=== PATIENT | male | born 1955 | race Caucasian/White ===

== ENCOUNTER 2019-12-24 13:24 | Inpatient (IN) | payer OTHER ==
[~2019-12-24] VITALS: Ht 193 cm; Wt 133.4 kg
[~2019-12-24 13:24] MED LIST: ACCUPRIL40 MG PO; AMLODIPINE BESY10 MG PO; ATENOLOL50 MG PO; FUROSEMIDE40 MG PO; GABAPENTIN300 MG PO; TAMSULOSIN HCL0.4 MG PO; WARFARIN SODIUM10 MG PO
--- NOTE | 2019-12-24 13:32 | Emergency Department Note ---
History of Present Illnes History of Present Illness History of Present Illness This is a 64 year old male hx of DJD, had a steroid injection last week to the right hip, fell and hurt his right hip. His orthopedic doctor is Dr Roel Guevara in [facility]. Arrival Mode: Car Onset (how long ago): hour(s) Radiation: Reports non-radiation Severity: severe Onset quality: sudden Duration (how long): hour(s) Timing of current episode: constant Relieving factors: immobilization Exacerbating factors: movement Associated symptoms: Reports denies other symptoms Treatments prior to arrival: none Past Medical/Family History Physician Review I have reviewed the patient's past medical and family history. Any updates have been documented here. Past Medical History Past Medical History: Osteoarthritis Other Medical History: FLUID RETENTION NEUROPATHY BPH ARTIFCIAL HEART FAILURE Other Surgery: ARTIFICAL HEART VALVE REPLACEMENT LEFT KNEE Social History Smoking Cessation: Unknown if ever smoked Counseling Performed: No Any Illegal Drug Use: No TB Exposure/Symptoms: No Physically hurt or threatened: No Family History Family history of heart diseas: No Other Last Tetanus: UTD Any Pre-Existing Lines (PICC,: No Review of Systems Review of Systems Constitutional: Reports as per HPI EENTM: Reports no symptoms Cardiovascular: Reports no symptoms Respiratory: Reports no symptoms Gastrointestinal: Reports no symptoms Genitourinary: Reports no symptoms Musculoskeletal: Reports joint pain Integumentary: Reports no symptoms Neurological: Reports no symptoms Psychological: Reports no symptoms Endocrine: Reports no symptoms Hematological/Lymphatic: Reports no symptoms Physical Exam Related Data Allergies: Coded Allergies: No Known Allergies (Unverified , 01/05/15) Vital signs reviewed: Yes Physical Exam CONSTITUTIONAL Constitutional: Present well-developed, Present well-nourished HENT HENT: Present normocephalic, Present atraumatic, Present oropharynx clear/moist, Present nose normal HENT L/R: Present left ext ear normal, Present right ext ear normal EYES Eyes: Reports PERRL, Reports conjunctivae normal NECK Neck: Present ROM normal PULMONARY Pulmonary: Present effort normal, Present breath sounds normal CARDIOVASCULAR Cardiovascular: Present regular rhythm, Present heart sounds normal, Present c apillary refill normal, Present normal rate GASTROINTESTINAL Abdominal: Present soft, Present nontender, Present bowel sounds normal GENITOURINARY Genitourinary: Present exam deferred SKIN Skin: Present warm, Present dry MUSCULOSKELETAL Musculoskeletal: Present deformity, Present tenderness, Present other (right hip tender, no opened wound, both knee looks deformed c/w DJD) NEUROLOGICAL Neurological: Present alert, Present oriented x 3, Present no gross motor or sensory deficits PSYCHOLOGICAL Psychological: Present mood/affect normal, Present judgement normal Results Laboratory Lab results reviewed: Yes Imaging Imaging results reviewed: Yes Imaging Comments right hip fracture Diagnostics Tests Diagnostic test(s) reviewed: Yes Procedures 12 Lead ECG Interpretation ECG Interpretation : ECG: ECG 1 Poultry Slaughterer: Interpreted by ED physician Date: Dec 24, 2019 Time: 17:22 Prior ECG tracings: reviewed Rhythm: atrial fibrillation Rate: normal QRS axis: normal ST segments normal: Yes Clinical Impression: abnormal ECG Assessment & Plan Medical Decision Making MDM trauma, on blood thinner Reassessment Reassessment time: 15:21 Reassessment discussed with pt Assessment & Plan Final Impression: (1) Intertrochanteric fracture of right femur (2) Acute pain due to trauma Depart Disposition: ADMITTED Home Meds Active Scripts Amlodipine Besylate (AMLODIPINE BESYLATE) 10 Mg Tablet, 10 MG PO DAILY, #30 TAB Prov:ERIKA LIMON PLANT PRODUCTION MANAGER 01/08/15 Reported Medications Gabapentin (GABAPENTIN) 300 Mg Capsule, 300 MG PO TID, #60 CAP 01/05/15 Tamsulosin Hcl (TAMSULOSIN HCL) 0.4 Mg Cap.er.24h, 0.4 MG PO DAILY 01/05/15 Warfarin Sodium (WARFARIN SODIUM) 10 Mg Tablet, 12.5 MG PO 3 X WEEK 01/05/15 Warfarin Sodium (WARFARIN SODIUM) 10 Mg Tablet, 10 MG PO 4 X WEEK 01/05/15 Furosemide (FUROSEMIDE) 40 Mg Tablet, 40 MG PO Daily, #30 TAB 01/05/15 Quinapril Hcl (ACCUPRIL) 40 Mg Tablet, 40 MG PO BID 01/05/15 Atenolol (ATENOLOL) 50 Mg Tablet, 50 MG PO BID 01/05/15 Medications in the ED IV Zofran, IV opiods. Physician Attestation Provider Attestation discussed with his ortho Dr Den Guevara [phone], he is out of town and he asks patient to be cared for at [facility]. Discussed with Dr Katz, he rec preop for the next day. I have talked to attending as well. SHARI SONG MD Dec 24, 2019 13:32
[2019-12-24] MEDS ORDERED: HYDROCODONE/APAP 5MG-325MG TAB PO ONE (14:00)
[2019-12-24] MEDS ORDERED: ONDANSETRON HCL 4 MG ORAL DISINTEGRATING TAB PO ONE (14:00)
[2019-12-24] MEDS ORDERED: KETOROLAC TROMETHAMINE 30 MG/ML VIAL IM ONE (14:00)
--- OUTSIDE RECORDS SUMMARY | 2019-12-24 14:32 | XMS REPORT | Summary of Care ---
Author Author CASSANDRA Lew Organization Unknown Address Unknown Phone Unavailable Care Team Providers Care Provider Relations Coordinator Name Role Phone JOSIE GOODMAN M.D. Unavailable Unavailable JOSIE GOODMAN MD Unavailable Unavailable Functional Status Name Dates Details Functional status health issues are not documented Status: Name Dates Details Cognitive status health issues are not d ocumented Status: Problems Name Dates Details Right hip pain (719.45, M25.551) Status: Active Osteoarthritis of right hip (715.95, M16 .11) Status: Active Encounter for laboratory testing for COV ID-19 virus (V73.89, Z11.59) Status: Active Medications Name Dates Details Medications not documented Allergies and Adverse Reactions Name Dates Details Allergy history not documented Status: Procedures Procedure Dates Details . [facility] - COVID-19/SARS-Cov-2 Date: 06-Dec-2019 Immunization Name Dates Details Immunizations not documented Social History Name Dates Details Tobacco smoking consumption unknown (finding) Vital Signs Date Test Result Details No Known Vitals to report Results Date Description Value Details Results not documented Plan of Care Name Dates Details Planned Observations Planned Goals not documented Planned Encounters Appointment; JOSIE GOODMAN M.D. On: 14-Dec-2019 8:30 Appointment; JOSIE GOODMAN M.D. On: 29-Dec-2019 9:15 Interventions Provided Labs/Procedures/Imaging* . [facility] - COVID-19/SARS-Cov-2; To Be Done: 06 Dec 2019 * [A] Xray HIP UNILAT w/PELVIS 2-3 VIEWS; Done: 06 Dec 2019 Instructions Name Dates Details Instructions not documented Encounters Appointment; JOSIE GOODMAN M.D. Encounter Diagnosis: Problem not documented On: 06-Dec-2019 9:45
--- OUTSIDE RECORDS SUMMARY | 2019-12-24 14:32 | XMS REPORT | Summary of Care ---
Author Author CASSANDRA GOODMAN M.D. Unknown Address Unknown Phone Unavailable Care Team Providers Care Teacher Education Director Name Role Phone JOSIE GOODMAN M.D. Unavailable Unavailable JOSIE GOODMAN MD Unavailable Unavailable Functional Status Name Dates Details Functional status health issues are not documented Status: Name Dates Details Cognitive status health issues are not d ocumented Status: Problems Name Dates Details Active medical history not documented Status: Medications Name Dates Details Medications not documented Allergies and Adverse Reactions Name Dates Details Allergy history not documented Status: Procedures Procedure Dates Details Procedures not documented Immunization Name Dates Details Immunizations not documented Social History Name Dates Details Tobacco smoking consumption unknown (finding) Vital Signs Date Test Result Details No Known Vitals to report Results Date Description Value Details Results not documented Plan of Care Name Dates Details Planned Observations Planned Goals not documented Interventions Provided Labs/Procedures/Imaging* [A] Xray HIP UNILAT w/PELVIS 2-3 VIEWS; Done: 06 Dec 2019 Instructions Name Dates Details Instructions not documented Encounters Appointment; JOSIE GOODMAN M.D. Encounter Diagnosis: Problem not documented On: 06-Dec-2019 9:45
--- OUTSIDE RECORDS SUMMARY | 2019-12-24 14:32 | XMS REPORT | Summary of Care ---
Author Author CASSANDRA Lew Organization Unknown Address Unknown Phone Unavailable Care Team Providers Care Cigar Packer And Grader Name Role Phone Saige Lew Unavailable Unavailable JOSIE GOODMAN MD Unavailable Unavailable [...] Planned Encounters Appointment; JOSIE GOODMAN M.D. On: 21-Dec-2019 7:00 Instructions Name Dates Details Instructions not documented Encounters Appointment; JOSIE GOODMAN M.D. Encounter Diagnosis: Problem not documented On: 06-Dec-2019 9:45
--- OUTSIDE RECORDS SUMMARY | 2019-12-24 14:32 | XMS REPORT | Continuity of Care Document ---
Author Author [facility] t Organization [facility] Address [address] [place] [address] Phone Unavailable Care Team Providers Care Program Clerk Name Role Phone Joaquin MENJIVAR, Teresa Garza PCP Unavailable JOSIE GOODMAN M.D. Attphys Unavailable JOAQUIN, TERESA GARZA Attphys Unavailable AJNEENA Varela Attphys Unavailable JOAQUIN, TERESA GARZA Admphys Unavailable Problems Condition Name Condition Details Condition Category Status Onset Date Resolution Date Last Treatment Date Treating Clinician Comments Source Atrial fibrillation Atrial fibrillation Disease [facility] 2018-03-25 [facility] specific antigen [PSA] Elevated pros davis specific antigen [PSA] Disease Active 2017-06-09 00:00:00 MD Nichole toussaint Encounter for screening for malignant neoplasm of pros davis Encounter for screening for malignant neoplasm of prostate Disease Active 201 11-20-25 00:00:00 MD Mondragon Right hip pain Right hip pain Problem Active [facility] Osteoarthritis of right hip Osteoarthritis of right hip Problem Active [facility] Encounter for laboratory testing for COVID-19 virus En counter for laboratory testing for COVID-19 virus Problem Active [facility] Allergies, Adverse Reactions, Alerts Allergy Name Allergy Type Status Severity Reaction(s) Onset Date Inacti ve Date Treating Clinician Comments Source Amiodarone Analogues Propensity to adverse reactions Active 2018-03-25 00:00:00 Developed thyroid issues after p rolonged use [facility] Family History Family Member Diagnosis Comments Start Date Stop Date Source Natural brother -Melanoma MD Early on Natural father Diabetes MD Idania sood Natural mother -Breast cancer Natural mother Hypertension Romario son Paternal aunt -Thoracic or Lung MD A nderson Paternal uncle -Gastrointestinal (Esophagus , Liver, Bile Duct, Stomach, Pancreas, Colon, Rectum, Anus MD Mondragon Social History Social Habit Start Date Stop Date Quantity Comments Source Sex Assigned At MD Mondragon Alcohol Comment 2018-03-25 00:00:00 2018-03-25 00:00:[address] [facility] Cigarettes smoked current (pack per day) - Reported 00:00:00 2016-09-02 00:00:00 MD Mondragon Cigarette pack-years 2016-09-02 00:00:00 2016-09-02 00:00:00 MD Mondragon Tobacco use and exposure 2016-09-02 00:00:00 2016-09-02 00:00:00 Abraham ray used MD Mondragon Alcohol intake 2016-09-02 00:00:00 2016-09-02 00:00:00 Current non-drinker of alcohol (finding) MD Mondragon Tobacco Comment 2016-09-02 00:00:00 2016-09-02 00:00:00 quit for three years during the 20 years I smoked MD Mondragon History of tobacco use 1996-05-05 00:00:00 1995-11-15 00:00:00 Curren t smoker MD Mondragon Smoking Status Start Date Stop Date Source Former smoker 2016-09-02 00:00:00 2016-09-02 00:00:00 MD Doss son Medications Ordered Medication Name Filled Medication Name Start Date Stop Da te Current Medication? Ordering Clinician Indication Dosage Frequency Signature (SIG) Comments Components Source furosemide (LASIX) 40 MG tablet 2018-03-25 08:45:46 Yes 20mg QD Take 20 mg by mouth daily . [facility] warfarin (COUMADIN) 10 MG tablet 2018-03-25 08:41:21 Yes 10mg QD Take 10 mg by mouth daily Pt takes 10 mg warfarin daily, 12.5 mg on Fridays [address]. [facility] guanFACINE (TENEX) 2 MG tablet 2018-03-24 13:02:03 Yes 2mg QD Take 2 mg by mouth nightly. [facility] quinapril (ACCUPRIL) 40 MG tablet 2018-03-24 13:02:03 Yes 40mg Q.5D Take 40 mg by mouth 2 (two) times daily. [facility] gabapentin (NEURONTIN) 300 MG capsule 2018-03-24 13:02:03 Yes 300mg Q.5D Take 300 mg by mouth 2 (two) times daily. [facility] glucosam/chond-msm1/C/vickie/bor ([id number] COMPLE X ORAL) 2018-03-24 13:02:03 Yes 2{tbl} QD Take 2 tablets by mouth carolin y. [facility] tamsulosin (FLOMAX) 0.4 mg Cap 24 hr capsule 2018-03-24 13:02:03 Yes .4mg QD Take 0.4 mg by mouth daily. [facility] amLODIPine (NORVASC) 10 MG tablet 2018-03-24 13:02:02 Yes 10mg QD Take 10 mg by mouth daily. [facility] atenolol (TENORMIN) 50 MG tablet 2018-03-24 13:02:02 Yes 50mg Q.5D Take 50 mg by mouth 2 (two) times daily. [facility] guanFACINE (TENEX) 2 mg tablet 2016-11-23 00:00:00 Yes 2mg Take 2 mg by mouth at bedtime. MD Mondragon warfarin (COUMADIN) 5 mg tablet 2016-08-28 00:00:00 Yes 5mg Take 5 mg by mouth daily. MD Mondragon gabapentin (NEURONTIN) 300 mg capsule 2016-08-27 00:00:00 Y es 300mg Take 300 mg by mouth daily. MD Mondragon guanFACINE (TENEX) 2 mg tablet 2016-08-24 00:00:00 Yes 2mg Take 2 mg by mouth daily. MD Mondragon tamsulosin (FLOMAX) 0.4 mg 24 hr capsule 2016-08-07 00:00:00 Yes .4mg Take 0.4 mg by mouth daily. MD Mondragon quinapril (ACCUPRIL) 40 mg tablet 2016-07-27 00:00:00 Yes 40mg Take 40 mg by mouth twice daily. MD Mondragon amLODIPine (NORVASC) 10 mg tablet 2016-06-01 00:00:00 Yes 10mg Take 10 mg by mouth daily. MD Mondragon furosemide (LASIX) 40 mg tablet 2016-04-20 00:00:00 Yes 40mg Take 40 mg by mouth daily. MD Mondragon atenolol (TENORMIN) 50 mg tablet 2015-10-02 00:00:00 Yes 50mg Take 50 mg by mouth daily. MD Mondragon Procedures Procedure Date / Time Performed Performing Clinician Sourc e [UTP] Ortho - Surgery Scheduling 2019-12-06 00:00:00 [facility] . [facility] - COVID-19/SARS-Cov-2 2019-12-06 00:00:00 [facility] Plan of Care Planned Activity Planned Date Details Comments Source Future Scheduled Test 2021-03-14 00:00:00 Lipid panel (proce dure) [code = 99281041] [facility] Future Scheduled Test 2020-01-16 00:00:00 INFLUENZA VACCINE (#1) [code = INFLUENZA VACCINE (#1)] [facility] r Diagnostic Test Pending 2019-12-06 00:00:00 [UTP] Ortho - Issa rgery Scheduling [code = [UTP] Ortho - Surgery Scheduling] [facility] Diagnostic Test Pending 2019-12-06 00:00:00 [UTP] Ortho - Issa rgery Scheduling [code = [UTP] Ortho - Surgery Scheduling] [facility] Future Scheduled Test 2019 00:00:00 PNEUMOCOCCAL 65+ L OW/MEDIUM RISK (1 of 2 - PCV13) [code = PNEUMOCOCCAL 65+ LOW/MEDIUM RISK (1 of 2 - PCV13)] [facility] Future Scheduled Test 1955 00:00:00 Screening for eloise gnant neoplasm of colon (procedure) [code = 174503058] [facility] Future Appointment 2019-12-29 09:15:00 Kimberly GALINDO [facility] Encounters Start Date/Time End Date/Time Encounter Type Admission Type Attendi [facility] Care Department Encounter ID Source 2019-12-06 09:45:00 2019-12-06 09:45:00 Appointment; ROBBIE GOODMAN M.D. CARLYLE, TRENT[place], M.D. [id number] Results Test Description Test Time Test Comments Results Result Comments Source PROTHROMBIN TIME/INR 2018-03-25 09:12:00 Test Item PROTIME (BEAKER) (test code = 759) 31.9 seconds 11.7-14.7 H INR (BEAKER) (test code = 370) 3.1 <=5.9 RECOMMENDED COUMADIN/WARFARIN INR THERAPY RANGESSTANDARD DOSE: 2.0 - 3.0 Inclu kristal: PROPHYLAXIS for venous thrombosis, systemic embolization; TREATMENT for svetlana ous thrombosis and/or pulmonary embolus.HIGH RISK: Target INR is 2.5-3.5 for pat ients with mechanical heart valves.U/S, TESTICULAR, WITH [id number] 22:09:00Reason for exam:->left testicular swellingc/o inability to urinate since yesterday. Pt reports 2 year hx of dysuria. Pt reporrs on tamusolin. Reason for exam:->DYSURIAReason for exam:->L swollen testicle x 2-3 daysFINAL REPORT Testicular ultrasound date 05/12/2017 CLINICAL INDICATION: Left scrotal pain Comment: Real-time mason-scale, color and spectral Doppler ultrasound examination of the testis were obtained. Doppler examination was performed to evaluate testicular blood flow. The right testicle measures 5.0 x 2.9 x 3.3 cm. The left testicle measures 3.5 x 3.7 x 2.4 cm. Both testis are homogeneous without focal mass. Doppler ultrasound demonstrates patent arterial and venous flow in both testis. Right epididymis measures 1.5 x 0.8 x 0.9 cm. Left epididymis measures 2.0 x 0.8 x 0.8 cm. There is a simple left epididymal cyst measuring 5 mm. There are simple bilateral hydroceles, left greater than right. Bilateral varicoceles are suspected. Impression: Normal ultrasound appe arance of the testicles. Simple bilateral hydroceles. Suspected bilateral varico doris. Signed: Maxwell De La Torre MDReport Verified Date/Time: 05/12/2017 22:09:12 R eabehzad Location: [address] Reading Room ALYSIS W/ MICROSCOPIC 2017-05-12 21:28:00* Test Item Value Reference Range Interpretation Comments COLOR (BEAKER) (test code = 470) Yellow CLARITY (BEAKER) (test code = 469) Clear SPECIFIC GRAVITY UA (BEAKER) (test code = 468) 1.020 1.001-1 .035 PH UA (BEAKER) (test code = 467) 7.0 5.0-8.0 PROTEIN UA (BEAKER) (test code = 464) 30 mg/dL Negative A GLUCOSE UA (BEAKER) (test code = 365) Negative Negative KETONES UA (BEAKER) (test code = 371) 40 mg/dL Negative A BILIRUBIN UA (BEAKER) (test code = 462) Positive Negative A BLOOD UA (BEAKER) (test code = 461) Moderate Negative A NITRITE UA (BEAKER) (test code = 465) Negative Negative LEUKOCYTE ESTERASE UA (BEAKER) (test code = 466) Small Negat zonia A UROBILINOGEN UA (BEAKER) (test code = 463) 2.0 mg/dL 0.2-1.0 H BACTERIA (BEAKER) (test code = 517) Many MUCUS (BEAKER) (test code = 1574) Many RBC UA-MANUAL (BEAKER) (test code = 1659) 50-100 /HPF WBC UA-MANUAL (BEAKER) (test code = 1661) 50-100 /HPF SOURCE(BEAKER) (test code = 9852)
--- OUTSIDE RECORDS SUMMARY | 2019-12-24 14:32 | XMS REPORT | Clinical Summary ---
Author Author ANGEL [employer] [facility] Address Unknown Phone Unavailable Care Team Providers Care Bottom Cementer Name Role Phone Greg Nuñez MD PCP Unavailable Allergies Comments Active Allergy Reactions Severity Noted Date Developed thyroid issues after prolonged use Amiodarone Analogues 03/25/2018 Medications End Date Status Medication Sig Dispensed Refills Start Date Active amLODIPine (NORVASC) 10 Take 10 mg by 0 MG tablet mouth daily. Active atenolol (TENORMIN) 50 MG Take 50 mg by 0 tablet mouth 2 (two) times daily. Active furosemide (LASIX) 40 MG Take 20 mg by 0 tablet mouth daily . Active guanFACINE (TENEX) 2 MG Take 2 mg by 0 tablet mouth nightly. Active quinapril (ACCUPRIL) 40 Take 40 mg by 0 MG tablet mouth 2 (two) times daily. Active warfarin (COUMADIN) 10 MG Take 10 mg by 0 tablet mouth daily Pt takes 10 mg warfarin daily, 12.5 mg on Fridays only. Active gabapentin (NEURONTIN) Take 300 mg 0 300 MG capsule by mouth 2 (two) times daily. Active glucosam/chond-msm1/C/man Take 2 0 g/bor tablets by ([id number] mouth daily. COMPLEX ORAL) Active tamsulosin (FLOMAX) 0.4 Take 0.4 mg 0 mg Cap 24 hr capsule by mouth daily. Active Problems Problem Noted Date Atrial fibrillation 03/25/2018 Social History Date Tobacco Use Types Packs/Day Years Used Former Smoker Smokeless Tobacco: Never Used Comments: Quit 20 years ago Alcohol Use Drinks/Week oz/Week Comments Yes 7 Cans of 4.2 Seldom beer Sex Assigned at Date Recorded Not on file Industry Job Start Date Occupation Not on file Not on file Not on file Travel End Travel History Travel Start No recent travel history available. Last Filed Vital Signs Not on file Plan of Treatment Health Maintenance Due Date Last Done Comments COLON CANCER SCREENING 1954 COLONOSCOPY PNEUMOCOCCAL 65+ 2019 03/06/2013, 005 LOW/MEDIUM RISK (1 of 2 - PCV13) INFLUENZA VACCINE (#1) 2020 03/16/2017, 05/2014, 03/06/2013, Additional history exists LIPID PANEL 03/14/2021 03/14/2018 Results Not on fileafter 12/23/2018 Insurance Payer Benefit Subscriber ID Type Phone Address Plan / Group [facility] [place] HMO xxxxxxxxx HMO/PO S CARE POS SELECT CHOICE [phone] Advance Directives For more information, please contact: [facility] [address] [place] [address] Date Inactivated Comments Code Status Date Activated Full Code 03/25/2018 11:06 AM This code status was determined by: Patient
--- OUTSIDE RECORDS SUMMARY | 2019-12-24 14:32 | XMS REPORT | Summary of Care ---
Author Author CASSANDRA GOODMAN M.D. Unknown Address Unknown Phone Unavailable Care Team Providers Care Pharmacy Grad Intern Name Role Phone JOSIE GOODMAN M.D. Unavailable [...] not documented Status: Procedures Procedure Dates Details [UTP] Ortho - Surgery Scheduling Date: 06-Dec-2019 . [facility] - COVID-19/SARS-Cov-2 Date: 06-Dec-2019 Immunization Name Dates Details Immunizations not documented Social History Name Dates Details Tobacco smoking consumption unknown (finding) Vital Signs Date Test Result Details No Known Vitals to report Results Date Description Value Details Results not documented Plan of Care Name Dates Details Planned Observations [UTP] Ortho - Surgery Scheduling On: 06-Dec-2019 Intent Planned Goals not documented Interventions Provided Labs/Procedures/Imaging* . [facility] - COVID-19/SARS-Cov-2; To Be Done: 06 Dec 2019 * [A] Xray HIP UNILAT w/PELVIS 2-3 VIEWS; Done: 06 Dec 2019 Plan* Patient Education/Instructions: * Patient education and reassurance was provided for better understanding of the diagnosis and treatment plan. An opportunity to ask questions was provided. * Weightbearing status: full weight bearing as tolerated * Activity Status: * Instructions were given to avoid running and jumping. * Instructions were given to avoid squatting and kneeling. * Instructions were given to avoid ladders and climbing. * Significant time was spent educating and counseling the patient Diagnosis, treatment options, and prognosis were discussed. Various non-surgical, surgical and alternative treatments were discussed thoroughly. The natural history and prognosis of the diagnosis was reviewed in detail. Understanding was acknowledged. Activity modification was recommended to prevent recurrence or aggravation of symptoms. Methods to accomplish this were discussed in detail. Understanding was acknowledged. * Orders: * Medications: * Medications (prescribed or recommended at this visit): Medication was prescribed or recommended. Dosage, administration, and common potential side effects were reviewed. Please confirm and review medication information and directions with the pharmacist. * - Use advil or aleve as needed for pain relief, discomfort, or fever. Do not take more than recommended dosage in a 24 hour period as this can cause severe side effects including kidney damage. * Surgery: right intra articular injection. Surgery and various surgical options were discussed in detail. The risks and benefits of surgical, nonsurgical, and no treatment were reviewed. Understanding of this was verbally acknowledged. * Follow Up: * Return to the clinic before surgery or as needed. * Patient seen and examined by Physician. Instructions Name Dates Details Instructions not documented Encounters Appointment; JOSIE GOODMAN M.D. Encounter Diagnosis: Problem not documented On: 06-Dec-2019 9:45
--- OUTSIDE RECORDS SUMMARY | 2019-12-24 14:32 | XMS REPORT | Summary of Care ---
Author Author CASSANDRA GOODMAN M.D. Organization Unknown Address Unknown Phone Unavailable Care Team Providers Care Fabrics And Material Cutter Name Role Phone JOSIE GOODMAN M.D. Unavailable [...] Appointment; JOSIE GOODMAN M.D. On: 21-Dec-2019 7:00 Interventions Provided Labs/Procedures/Imaging* . [facility] - COVID-19/SARS-Cov-2; To Be Done: 06 Dec 2019 * [A] Xray HIP UNILAT w/PELVIS 2-3 VIEWS; Done: 06 Dec 2019 Instructions Name Dates Details Instructions not documented Encounters Appointment; JOSIE GOODMAN M.D. Encounter Diagnosis: Problem not documented On: 06-Dec-2019 9:45
--- OUTSIDE RECORDS SUMMARY | 2019-12-24 14:32 | XMS REPORT | Summary of Care ---
Author Author CASSANDRA GOODMAN M.D. Unknown Address Unknown Phone Unavailable Care Team Providers Care Pharmacy Delivery Driver Name Role Phone JOSIE GOODMAN M.D. Unavailable [...]
--- NOTE | 2019-12-24 14:47 | Diagnostic Imaging Report ---
CT Bony Pelvis Without Contrast, With Multiplanar Reconstruction. CPT CODE: 55979,81300. INDICATIONS: Chronic hip pain increasing after fall TECHNIQUE: Contiguous 5 mm thickness axial images were obtained in helical fashion through the bony pelvis. From these, coronal and sagittal reconstructions were generated. RADIATION DOSE: Total DLP: 402.6 mGy*cm Estimated effective dose: (DLP x 0.015 x size factor) mSv CTDIvol has been reviewed. It is below the limits set by the Radiation Protocol Committee (RPC). Dose reduction techniques used: Automated exposure control, adjustment of the mAs and/or kVp according to patient size, standardized low-dose protocol, and/or iterative reconstruction technique. COMPARISON: Report of CT abdomen/pelvis performed 01/06/2015. Findings: Bowel: Visualized portions are normal in diameter with normal wall thickness. The appendix is normal. Bladder: Circumferential mural thickening. The prostate gland is enlarged. Vasculature: Aortic structures are diffusely calcified. Bones: Degenerative changes of the lower lumbar spine without compression fracture or listhesis. Degenerative changes of the sacroiliac joints, right greater than left. Severe degenerative changes of the right hip. Nondisplaced intertrochanteric fracture of the right femur. Mild degenerative changes of the left hip. Soft tissues: No intramuscular hematoma. Small amount of simple fluid in the right inguinal canal. IMPRESSION: Nondisplaced intertrochanteric fracture of the right femur. Severe degenerative changes of the right hip. No femoral head dislocation. Other degenerative changes as described above. Fluid containing right inguinal hernia. Thank you for this referral. Signed by: Dr. Hu Kennedy MD on 12/24/2019 2:44 PM
--- OUTSIDE RECORDS SUMMARY | 2019-12-24 15:29 | XMS REPORT | Clinical Summary ---
Author Author [employer] [facility] Address Unknown Phone Unavailable Care Team Providers Care Maintenance Engineer Name Role Phone Greg Nuñez MD PCP [...] glucosam/chond-msm1/C/man Take 2 0 g/bor tablets by (ZKTIXIGCOLD-YROBX-YQB mouth daily. COMPLEX ORAL) Active tamsulosin (FLOMAX) [...] ID Type Phone Address Plan / Group [facility] HMO xxxxxxxxx HMO/PO S CARE POS SELECT CHOICE [phone] Advance Directives For more information, please contact: [facility] [address] [place] [address] Date Inactivated Comments Code Status Date Activated Full Code 03/25/2018 11:06 AM This code status was determined by: Patient
--- OUTSIDE RECORDS SUMMARY | 2019-12-24 15:29 | XMS REPORT | Continuity of Care Document ---
Author Author [facility] t Organization [facility] Address [address] [place] [address] Phone Unavailable Care Team Providers Care Memory Care Program Resident Name Role Phone Joaquin MENJIVAR, Teresa Garza PCP Unavailable DUNCAN, T MCCARTHY Attphys Unavailable JOSIE GOODMAN M.D. Attphys Unavailable TERESA GALLAGHER Attphys Unavailable AJ, ADEDOYIN Attphys Unavailable JOAQUIN, TERESA GARZA Admphys Unavailable Problems Condition Name Condition Details Condition Category Status Onset Date Resolution Date Last Treatment Date Treating Clinician Comments Source Atrial fibrillation Atrial fibrillation Disease Active 2018-03-25 00:00 [facility] prostate specific antigen [PSA] Elevated [...] Developed thyroid issues after p rolonged use [facility] Family History Family Member Diagnosis Comments Start Date Stop Date Source Natural brother -Melanoma Sharath on Natural father Diabetes MD Idania sood Natural mother -Breast cancer Natural mother Hypertension Romario son Paternal aunt -Thoracic or Lung MD Nichole toussaint Paternal uncle -Gastrointestinal (Esophagus , Liver, Bile Duct, Stomach, Pancreas, Colon, Rectum, Anus MD Mondragon Social History Social Habit Start Date Stop Date Quantity Comments Source Sex Assigned At MD Mondragon Alcohol Comment 2018-03-25 00:00:00 2018-03-25 00:00:00 Seldom [facility] Cigarettes smoked current (pack per day) - Reported 00:00:00 2016-09-02 00:00:00 MD Mondragon Cigarette pack-years 2016-09-02 00:00:00 2016-09-02 00:00:00 MD Mondragon Tobacco use and exposure 2016-09-02 00:00:00 2016-09-02 00:00:00 Slime cory used MD Mondragon Alcohol intake 2016-09-02 00:00:00 [...] Take 20 mg by mouth daily . [facility] warfarin (COUMADIN) 10 MG tablet 2018-03-25 08:41:21 Yes 10mg QD Take 10 mg by mouth daily Pt takes 10 mg warfarin daily, 12.5 mg on Fridays only. [facility] guanFACINE (TENEX) 2 MG tablet 2018-03-24 13:02:03 Yes 2mg QD Take 2 mg by mouth nightly. [facility] quinapril (ACCUPRIL) 40 MG tablet 2018-03-24 13:02:03 Yes 40mg Q.5D Take 40 mg by mouth 2 (two) times daily. [facility] gabapentin (NEURONTIN) 300 MG capsule 2018-03-24 13:02:03 Yes 300mg Q.5D Take 300 mg by mouth 2 (two) times daily. [facility] glucosam/chond-msm1/C/vickie/bor (VMCPODJJFWL-NJSEN-ISF COMPLE X ORAL) 2018-03-24 13:02:03 Yes 2{tbl} QD Take 2 tablets by mouth carolin y. [facility] tamsulosin (FLOMAX) 0.4 mg Cap 24 hr capsule 2018-03-24 13:02:03 Yes .4mg QD Take 0.4 mg by mouth daily. [facility] amLODIPine (NORVASC) 10 MG tablet 2018-03-24 13:02:02 Yes 10mg QD Take 10 mg by mouth daily. [facility] atenolol (TENORMIN) 50 MG tablet 2018-03-24 13:02:02 Yes 50mg Q.5D Take 50 mg by mouth 2 (two) times daily. [facility] guanFACINE (TENEX) 2 mg tablet 2016-11-23 00:00:00 [...] Procedure Date / Time Performed Performing Clinician Sour e [UTP] Ortho - Surgery Scheduling 2019-12-06 00:00:00 [facility] . [facility] - COVID-19/SARS-Cov-2 2019-12-06 00:00:00 [facility] Plan of Care Planned Activity Planned Date Details Comments Source Future Scheduled Test 2021-03-14 00:00:00 Lipid panel (proce dure) [code = 38296084] [facility] Test 2020-01-16 00:00:00 INFLUENZA VACCINE (#1) [code = INFLUENZA VACCINE (#1)] [facility] Pending 2019-12-06 00:00:00 [UTP] Ortho - Issa rgery Scheduling [code = [UTP] Ortho - Surgery Scheduling] [facility] Diagnostic Test Pending 2019-12-06 00:00:00 [UTP] Ortho - Issa rgery Scheduling [code = [UTP] Ortho - Surgery Scheduling] [facility] Future Scheduled Test 2019 00:00:00 PNEUMOCOCCAL 65+ L OW/MEDIUM RISK (1 of 2 - PCV13) [code = PNEUMOCOCCAL 65+ LOW/MEDIUM RISK (1 of 2 - PCV13)] [facility] Future Scheduled Test 1955 00:00:00 Screening for eloise gnant neoplasm of colon (procedure) [code = 411375333] [facility] Future Appointment 2019-12-29 09:15:00 Kimberly GALINDO [facility] Encounters Start Date/Time End Date/Time Encounter Type Admission Type Attendi [facility] Facility Care Department Encounter ID Source 2019-12-06 09:45:00 2019-12-06 09:45:00 Appointment; ROBBIE GOODMAN M.D. CARLYLE, TRENTON, M.D. [facility] Orth[facility]ics [facility] [id number] [facility] Results Test Description Test Time Test Comments Results Result Comments Source CT PELVIS WITHOUT-HOPD 2019-12-24 14:40:00 [facility] [address] [address] Patient Name: CASSANDRA CABELLO JR MR #: [id number] : 1955 Age/Sex: 64/M Re #: [id number] Adm Physician: Ordered by: SHARI SONG MD Report #: [id number] Location: [facility] Room/Bed: Procedure: [id number] HOPD/CT PELVIS WITHOUT-HOPD Exam Date: 12/24/19 Exam Time: 1420 REPORT STATUS: Signed CT Bony Pelvis Without Contrast, With Multiplanar Reconstruction. CPT CODE: 84962,91620. INDICATIONS: Chronic hip pain increasing after fall TECHNIQUE: Contiguous 5 mm thickness axial images were obtained in helical fashion through the bony pelvis. From these, coronal and sagittal reconstructions were generated. RADIATION DOSE: Total DLP: 402.6 mGy*cm Estimated effective dose: (DLP x 0.015 x size factor) mSv CTDIvol has been reviewed. It is below the limits set by the Radiation Protocol Committee (RPC). Dose reduction techniques used: Automated exposure control, adjustment of the mAs and/or kVp according to patient size, standardized low-dose protocol, and/or iterative reconstruction technique. COMPARISON: Report of CT abdomen/pelvis performed 01/06/2015. Findings: Bowel: Visualized portions are normal in diameter with normal wall thickness. The appendix is normal. Bladder: Circumferential mural thickening. The prostate gland is enlarged. Vasculature: Aortic structures are diffusely calcified. Bones: Degenerative changes of the lower lumbar spine without compression fracture or listhesis. Degenerative changes of the sacroiliac joints, right greater than left. Severe degenerative changes of the right hip. Nondisplaced intertrochanteric fracture of the right femur. Mild degenerative changes of the left hip. Soft tissues: No intramuscular hematoma. Small amount of simple fluid in the right inguinal canal. IMPRESSION: Nondisplaced intertrochanteric fracture of the right femur. Severe degenerative changes of the right hip. No femoral head dislocation. Other degenerative changes as described above. Fluid containing right inguinal hernia. Thank you for this referral. Signed by: Dr. Buzz Sharma MD on 12/24/2019 2:44 PM Dictated By: BUZZ SHARMA MD 43 Transcribed By: ANJALI on 12/24/191443 COPY TO: SHARI SONG MD PROTHROMBIN TIME/INR 2018-03-25 09:12:00 Test Item PROTIME (BEAKER) (test code = 759) 31.9 seconds 11.7-14.7 H INR (BEAKER) (test code = 370) 3.1 <=5.9 RECOMMENDED COUMADIN/WARFARIN INR THERAPY RANGESSTANDARD DOSE: 2.0 - 3.0 Inclu kristal: PROPHYLAXIS for venous thrombosis, systemic embolization; TREATMENT for svetlana ous thrombosis and/or pulmonary embolus.HIGH RISK: Target INR is 2.5-3.5 for pat ients with mechanical heart valves.U/S, TESTICULAR, WITH [id number] 22:09:00Reason for exam:->left testicular swellingc/o inability to [...] Torre MDReport Verified Date/Time: 05/12/2017 22:09:12 R sunni Location: [address] Reading Room ALYSIS W/ MICROSCOPIC 2017-05-12 [...] 1661) 50-100 /HPF SOURCE(BEAKER) (test code = 8312)
[2019-12-24] MEDS ORDERED: DIPHENHYDRAMINE HCL INJ 50 MG/ML VIAL IV PRN (15:30)
[2019-12-24] MEDS ORDERED: ENALAPRILAT IV INJ 1.25 MG/ML VIAL IV PRN (15:30)
[2019-12-24] MEDS ORDERED: SODIUM CHLORIDE FLUSH 10 ML SYR INJ PRN (15:30)
--- NOTE | 2019-12-24 15:52 | NUR ---
Called [facility] to transport pt to room 286
--- NOTE | 2019-12-24 16:06 | NUR ---
H&P HPI: 64yoM, PCP Roberth, was walking in backyard, when wasp appeared, in effort to avoid it, he fell. Foudn to have right hip fx. Ortho consulted; Pt normally exercises at gym, but not lately. PMH: SBO, HTN, AV ds s/p AVR mechanical, peripheral neuropathy, BPH, morbid obesity, AAA s/p repair, PAF. (No DM/CVA/TN/CKD) PSX: AVR valve 2004, cholecystectomy, left knee, AAA repair, cardioversion Allergies; see emr Fh/SH: ; no eoth/cigs Meds; see MAR ROS: no f/c/s/N/V/D/WOOD/cp/sob/skin rash/confusion/dizziness/vision changes v/s revd PE tired appearing anicteric ns1s2; metallic S2 mod bs soft nt nd right hip tender no leg edema skin dry n. affect a&ox3; zavala labs./meds revd A/P: 64yoM Elderly fall- PT consult Right hip fx- ortho consult; use heparin gtt and hold before surgery AVR hx- use heparin gtt; check inr; hold coumadin UTI- IV ceftriaxone PAF- on AC; HR controlled; HTN- cont antiHTN meds; BB/CCB Obesity- check hba1c/lipids BMI 35.9- as above BPH- flomax Peripheral neuropathy- gabapentin Prop: pepcid on AC dipso: ortho repair soon. PreOp eval: 1.Functional status>4mets work 2.Surgical risk Intermediate 3.Clinical risk: No DM/CVA/CAD/CKD. Therefore, patient may proceed to surgery without further testing. Use Heparin gtt until hours before surgery. Cardiology consultation; GHAZAL OBREGON MD, PHD.
--- NOTE | 2019-12-24 16:47 | Diagnostic Imaging Report ---
Hip complete Indication: ^preop ^[id number] ^1620 Technique: AP and frogleg views of right hip obtained. Comparison: CT bony pelvis 12/24/2019 Findings: Severe degenerative changes of the right hip. Mild degenerative changes of the left hip. Intertrochanteric fracture of the right femur is not displaced. Femoral head is not dislocated. No diastases the pubic symphysis sacroiliac joints. Mild degenerative changes of the lower lumbar spine. No significant burden of calcification in the arterial structures. IMPRESSION: Nondisplaced intertrochanteric fracture of the right femur. No femoral head dislocation. Severe degenerative changes of the right hip. Signed by: Dr. Hu Kennedy MD on 12/24/2019 4:44 PM
--- NOTE | 2019-12-24 16:48 | Diagnostic Imaging Report ---
EXAMINATION: CXR 1 VIEW - HOPD COMPARISON: None INDICATION: ^preop ^[id number] ^1620 DISCUSSION: Frontal view of the chest obtained at 1632 hours. HEART AND MEDIASTINUM: The heart is enlarged with a prosthetic aortic valve annulus. Thoracic aorta is tortuous. Pulmonary veins are prominent. LINES: None. LUNGS/PLEURA: The lungs are well inflated and clear. No pneumonia or pulmonary edema. No pleural effusion or pneumothorax. BONES AND SOFT TISSUES: Median sternotomy wires are intact. No focal osseous lesions. Mild degenerative changes of the right AC joint. The soft tissues are normal. IMPRESSION: Cardiomegaly and prosthetic aortic valve annulus. Pulmonary venous hypertension. No acute pulmonary process. Signed by: Dr. Hu Kennedy MD on 12/24/2019 4:45 PM
--- NOTE | 2019-12-24 16:52 | NUR ---
Report to CAMILLE Sanders
[2019-12-24] MEDS ORDERED: FAMOTIDINE 20 MG/2 ML VIAL IV SCH (17:00)
[2019-12-24] MEDS: FAMOTIDINE 20 MG/2 ML VIAL IV SCH (18:49)
[2019-12-24] MEDS: ATENOLOL 50 MG TAB PO SCH (18:49)
--- NOTE | 2019-12-24 19:13 | NUR ---
RECEIVED REPORT FROM JESU OBRIEN, INFORMED ME THAT PATIENT IS PENDING SURGERY IN THE AM, MD OBREGON REQUESTING THAT HEPARIN DRIP BE STARTED, ORDER NEEDS TO BE VERIFIED WITH SURGEON MD COOPER THEN PROCEED, MD COOPER PAGED, AWAITING CALL BACK
[2019-12-24 19:30] VITALS: BP 151/92
--- NOTE | 2019-12-24 19:41 | NUR ---
PER MD COOPER ABOUT HEPARIN GTT, HE WOULD LIKE A CALL BACK WHEN LABS POST ABOUT PTT/PT/AND INR LEVEL BEFORE HE GIVE ORDER, MD COOPER ALSO ORDERED PATIENT TO RECEIVE AM LABS PRIOR TO SURGERY TOMORROW; CBC CMP CXR EKG TYPE AND SCREEN, PTT/PT/INR AND URINALYSIS PRIOR TO SURGERY EKG PERFORMED, TYPE AND SCREEN COMPLETED, AND COAG PANEL BEING PROCESSED IN LAB NOW,
[2019-12-24] MEDS: ONDANSETRON HCL INJ 2MG/ML 2ML 2 MG/ML VIAL IV PRN (19:52)
[2019-12-24] MEDS: HYDROMORPHONE 2MG/ML 2 MG/ML ML IV PRN (19:52)
[2019-12-24] MEDS: GABAPENTIN 300 MG CAP PO SCH (19:52)
[2019-12-24 20:00] VITALS: BP 151/92
[2019-12-24 21:42] LABS: BASOPHILS % 0.2 % (0.0-1.0); HEMATOCRIT 40.7 % (38.2-49.6); HEMOGLOBIN 13.2 g/dL (14.0-18.0); LYMPHOCYTES # (AUTO) 0.8 (1.0-3.2); LYMPHOCYTES % 7.6 % (18.0-39.1); MEAN CORPUSCULAR HEMOGLOBIN 29.6 pg (28-32); MEAN CORPUSCULAR HGB CONC 32.4 g/dL (31-35); MEAN CORPUSCULAR VOLUME 91.3 fL (81-99); MONOCYTES # (AUTO) 0.7 (0.2-0.8); MONOCYTES % 6.8 % (4.4-11.3); NEUTROPHILS # (AUTO) 8.8 (2.1-6.9); NEUTROPHILS % 85.1 % (38.7-80.0); PLATELET COUNT 172 x10e3/uL (140-360); RED BLOOD COUNT 4.46 x10e6/uL (4.3-5.7); RED CELL DISTRIBUTION WIDTH 13.9 % (11.7-14.4)
[2019-12-24 21:48] LABS: INR 1.37; PARTIAL THROMBOPLASTIN TIME 28.3 seconds (23.8-35.5); PROTHROMBIN TIME 17.7 seconds (11.9-14.5)
[2019-12-24 21:54] LABS: ANION GAP 11.6 mmol/L (8-16); BLOOD UREA NITROGEN 9 mg/dL (7-26); BUN/CREATININE RATIO 14 (6-25); CALCIUM 8.6 mg/dL (8.4-10.2); CARBON DIOXIDE 26 mmol/L (22-29); CHLORIDE 104 mmol/L (98-107); CREATININE, SERUM 0.64 mg/dL (0.72-1.25); EST GLOMERULAR FILTRATION RATE > 60 ML/MIN (60-); GLUCOSE 114 mg/dL (74-118); POTASSIUM 3.6 mmol/L (3.5-5.1); SODIUM 138 mmol/L (136-145)
[2019-12-24] MEDS ORDERED: HEPARIN 25,000 UNIT 1,000 UNIT in DEXTROSE 5% 250ML 250 ML IV SCH (23:00)
[2019-12-24] MEDS ORDERED: HEPARIN 25,000U/0.45% NS 250ML 250 ML IV SCH (23:15)
--- NOTE | 2019-12-24 23:34 | NUR ---
ORDER PLACED FOR HEPARIN, PHARMACY VERIFIED, NO MED AVAILABLE IN PYXIS, ATTEMPTED TO PULL OUT OF THREE DIFFERENT PYX[place], ER DEPT ABLE TO GIVE ME BAG BUT ONLY HEPARIN 25,000 UNITS PER 250ML BAD IN 5% DEXTROSE, RECALLED PHARMACY TO MAKE THEM AWARE THAT ORDER NEEDS TO BE MODIFIED, AWAITING MODIFICATION TO BE ABLE TO GIVE MEDICATION
[2019-12-24] MEDS: HEPARIN 25,000 UNIT/D5W 250ML 250 ML IV SCH (23:47)
[2019-12-24] MEDS: LACTATED RINGER'S 1,000 ML IV SCH (23:48)
[2019-12-25] VITALS (8 sets, daily range): BP systolic 134–149; BP diastolic 79–94
[2019-12-25] MEDS: HYDROMORPHONE 2MG/ML 2 MG/ML ML IV PRN ×4 (00:30→20:20)
[2019-12-25] MEDS: ONDANSETRON HCL INJ 2MG/ML 2ML 2 MG/ML VIAL IV PRN ×2 (00:30→04:30)
[2019-12-25] MEDS: HEPARIN 25,000 UNIT/D5W 250ML 250 ML IV SCH (01:30)
[2019-12-25 02:55] LABS: CLARITY,URINE CLOUDY (CLEAR); COLOR,URINE ORANGE (YELLOW); KETONES,URINE NEGATIVE (NEGATIVE); LEUKOCYTE ESTERASE ,URINE NEGATIVE (NEGATIVE); NITRITE,URINE NEGATIVE (NEGATIVE); PROTEIN,URINE DIPSTICK NEGATIVE (NEGATIVE); URINE UROBILINOGEN 1 mg/dL (0.2 - 1)
[2019-12-25 02:56] LABS: BILIRUBIN,URINE 1+ (NEGATIVE)
[2019-12-25 03:02] LABS: BACTERIA,URINE MANY /HPF; EPITHELIAL CELLS,URINE FEW /LPF
[2019-12-25 03:03] LABS: AMORPHOUS SEDIMENT,URINE MANY (FEW); MUCUS,URINE FEW (RARE)
[2019-12-25] MEDS ORDERED: FINASTERIDE5 MG PO (04:37)
[2019-12-25] MEDS ORDERED: CIALIS5 MG PO (04:38)
[2019-12-25 05:47] LABS: BASOPHILS % 0.1 % (0.0-1.0); EOSINOPHILS % 0.1 % (0.0-6.0); HEMATOCRIT 41.3 % (38.2-49.6); HEMOGLOBIN 13.5 g/dL (14.0-18.0); LYMPHOCYTES # (AUTO) 0.6 (1.0-3.2); LYMPHOCYTES % 7.9 % (18.0-39.1); MEAN CORPUSCULAR HEMOGLOBIN 30.1 pg (28-32); MEAN CORPUSCULAR HGB CONC 32.7 g/dL (31-35); MEAN CORPUSCULAR VOLUME 92.2 fL (81-99); MONOCYTES # (AUTO) 0.7 (0.2-0.8); MONOCYTES % 8.3 % (4.4-11.3); NEUTROPHILS # (AUTO) 6.7 (2.1-6.9); NEUTROPHILS % 83.2 % (38.7-80.0); PLATELET COUNT 170 x10e3/uL (140-360); RED BLOOD COUNT 4.48 x10e6/uL (4.3-5.7); RED CELL DISTRIBUTION WIDTH 13.8 % (11.7-14.4)
[2019-12-25 05:55] LABS: INR 1.35; PROTHROMBIN TIME 17.5 seconds (11.9-14.5)
[2019-12-25 06:09] LABS: ALANINE AMINOTRANSFERASE 157 IU/L (0-55); ALBUMIN 3.8 g/dL (3.5-5.0); ALBUMIN/GLOBULIN RATIO 1.3 (0.8-2.0); ALKALINE PHOSPHATASE 79 IU/L (40-150); ANION GAP 10.7 mmol/L (8-16); BLOOD UREA NITROGEN 11 mg/dL (7-26); BUN/CREATININE RATIO 17 (6-25); CARBON DIOXIDE 29 mmol/L (22-29); CHLORIDE 102 mmol/L (98-107); CREATININE, SERUM 0.66 mg/dL (0.72-1.25); EST GLOMERULAR FILTRATION RATE > 60 ML/MIN (60-); GLUCOSE 111 mg/dL (74-118); POTASSIUM 3.7 mmol/L (3.5-5.1); SODIUM 138 mmol/L (136-145)
--- NOTE | 2019-12-25 06:11 | NUR ---
PATIENT AM PT 49.0, HEPARIN DRIP INCREASED PER PROTOCOL, PTT REORDERED REDRAW IN 6 HOURS PER PROTOCOL, PATIENT PENDING SURGERY, HEPARIN TO BE HELD AT 0900 FOR SURGERY AT 1330, PER MD COOPER VERBAL INSTRUCTIONS
--- NOTE | 2019-12-25 08:00 | NUR ---
Heparin drip Stopped by this time(0800) per MD's order. patient stable, New order recvd from Dr Gaston to consult Dr Armstrong
[2019-12-25] MEDS: AMLODIPINE BESYLATE 10 MG TAB PO SCH (08:07)
[2019-12-25] MEDS: ATENOLOL 50 MG TAB PO SCH ×2 (08:08→17:16)
[2019-12-25] MEDS ORDERED: TAMSULOSIN HCL 0.4 MG CAP PO SCH (09:00)
[2019-12-25] MEDS: GABAPENTIN 300 MG CAP PO SCH ×3 (09:00→20:20)
[2019-12-25] MEDS: FAMOTIDINE 20 MG/2 ML VIAL IV SCH ×2 (09:02→17:16)
[2019-12-25] MEDS: CEFTRIAXONE SOD 1 GM/NS 50 ML 50 ML IV SCH (09:03)
[2019-12-25] MEDS ORDERED: BACITRACIN 50,000 UNIT VIAL ONE (12:36)
[2019-12-25] MEDS ORDERED: BUPIVACAINE HCL 0.5% INJ 30 ML VIAL INJ ONE (12:36)
[2019-12-25] MEDS: LACTATED RINGER'S 1,000 ML IV SCH ×3 (12:51→23:56)
--- NOTE | 2019-12-25 13:38 | NUR ---
patient off the unit for procedure, Alert with No Distress, at bed side
--- NOTE | 2019-12-25 13:39 | Consultation ---
DATE OF CONSULTATION: 12/25/2019 REASON FOR CONSULTATION: History of atrial fibrillation, AVR and cardiac clearance. CHIEF COMPLAINT: Right hip pain. HISTORY OF PRESENT ILLNESS: This is a 64-year-old male with history of aortic valve replacement mechanical, ascending aneurysm repair in 2004, atrial fibrillation, hypertension, BPH, and osteoarthritis, also with obstructive sleep apnea and venous insufficiency. The patient presents to [facility] ER after sustaining a fall resulting in a right hip fracture. Cardiology was consulted given the patient's cardiac history and preop clearance requested. The patient is seen in room, reports yesterday he was coming out of his house when a group of hornets swarmed around him in which he turned quickly lost his balance landing on his right hip. The patient denies any dizziness, palpitations or lightheadedness prior to the event, reports he lost his balance and fell on his hip. The patient reports being followed by Dr. Nuñez at [facility] in which he has been maintaining his anticoagulation therapy. The patient denies any chest pains or shortness of breath. The patient reports that he is largely active. Prior to [facility], he was swimming on most days of the week. Without any anginal symptoms. PAST MEDICAL HISTORY: 1. Aortic valve replacement, mechanical. 2. Ascending aneurysm repair, 2004. 3. Atrial fibrillation. 4. Hypertension. 5. BPH. 6. Obstructive sleep apnea. 7. Venous insufficiency. 8. Osteoarthritis. SURGICAL HISTORY: AVR /ascending aorta repair in 2004, cholecystectomy, and left knee surgery. SOCIAL HISTORY: He is . 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 He denies any alcohol or tobacco use. FAMILY HISTORY: Mother , history of heart failure. Father , history of mitral valve replacement. HOME MEDICATIONS: Amlodipine 10 mg daily, atenolol 50 mg b.i.d., finasteride 5 mg daily, Lasix 40 mg daily, gabapentin 300 mg t.i.d., quinapril 40 mg b.i.d., Flomax 0.4 mg daily, and warfarin 7.5 mg three days a week and 10 mg four days a week. ALLERGIES: NO KNOWN ALLERGIES. REVIEW OF SYSTEMS: GENERAL: Denies any fatigue, weakness, fevers, chills, night sweats, or weight changes. SKIN: No rashes or bruises. HEENT: No nausea, vomiting, vision change, blurred vision, double vision, epistaxis, sore throat, or swollen neck. CARDIAC: Denies any chest pain, palpitations, orthopnea, or PND. Positive for dyspnea on exertion and intermittent lower extremity edema. RESPIRATORY: Denies any shortness of breath, hemoptysis, wheezing, or coughing. GI: Reports good appetite. Denies any nausea, vomiting, diarrhea, constipation, melena, tarry or bloody stools. URINARY: Positive for frequency and urgency. Denies any dysuria, hematuria. VASCULAR: Positive for lower extremity edema. Denies any claudication. MUSCULOSKELETAL: Denies any muscle weakness. Positive for generalized joint pains, back pains. NEUROLOGIC: Denies any tremors, weakness, paralysis, fainting, blackouts, or seizures. HEMATOLOGY: Denies any anemia. Positive for bruising. ENDOCRINE: Denies any heat or cold intolerance, polyuria, polydipsia, or polyphagia. PHYSICAL EXAMINATION: VITAL SIGNS: Height 76 inches, weight 285 pounds, BMI 35. Temperature 97.9, pulse 76, respiratory rate 20, blood pressure 136/86, and pulse ox 95% on room air. GENERAL: Appears stated age, reliable informant, in no acute distress. SKIN: No rashes or bruises noted. HEENT: Normocephalic. Pupils are equal, reactive. Extraocular movements intact. Trachea midline. No JVD. No carotid bruit. Oral mucosa pink. HEART: Irregular irregular rhythm. Positive click and positive sternotomy scar. LUNGS: Bilateral breath sounds clear to auscultation. Good airway entry and exit. ABDOMEN: Soft, nontender, and nondistended. No organomegaly noted. MUSCULOSKELETAL: Good muscle strength throughout however, limited right lower extremity. +1 lower extremity edema. VASCULAR: +2 radial pulses bilaterally. +2 DP and PT pulses bilaterally. NEUROLOGIC: Cranial nerves II through XII seem intact. LABORATORY DATA: White count 8, hemoglobin 13.5, hematocrit 41, and platelets 170. Chemistry, sodium 138, potassium 3.7, chloride 102, BUN 11, and creatinine 0.6. INR 1.3. COVID PCR pending. Chest x-ray showing cardiomegaly and prosthetic cardiac valve. Pelvic CT showing nondisplaced intertrochanteric fracture of the right femur and severe degenerative changes of right hip. EKG showing atrial fibrillation with heart rate of 72. ASSESSMENT: 1. Status post fall, mechanical. 2. Right femur fracture, mechanical by history. 3. Preop clearance is requested. 4. Status post aortic valve replacement, mechanical, on oral anticoagulant therapy. 5. History of atrial fibrillation. 6. Hypertension. 7. History of ascending aortic repair. PLAN: 1. The patient presents to [facility] after sustaining a fall, mechanical by history resulting in right femur fracture. Cardiology was consulted given the patient's history for preop evaluation. The patient reports prior to events he has been largely active. Denies any anginal symptoms. 2. This is asked with patient that he is at high risk for surgical procedure given his history, however, we will go ahead and clear the patient with understanding that risks are not zero. The patient is understanding and accepting all risks. 3. We will get an echo to evaluate heart function and structure. 4. SBE prophylaxis. 5. He will need to resume OAC post surgery. 6. We will continue to follow the patient and adjust cardiac therapy as clinic course dictates. Thank you very much for this consult. Seen and evaluated Very long visit with patient and with questions etc... Dictated by Michael Overton NP Geoff Armstrong MD DC/HOLLIS /[id number] MTDRosalind
[2019-12-25] MEDS ORDERED: MEPERIDINE HCL INJ 25 MG/ML VIAL ONE (15:51)
[2019-12-25] MEDS ORDERED: FENTANYL CITRATE/PF 100MCG/2 ML INJ ONE ×2 (15:58→21:39)
[2019-12-25] MEDS: HYDROMORPHONE 1MG/1ML INJ IV PRN (16:26)
--- NOTE | 2019-12-25 16:26 | NUR ---
CONSULTATION 64 year old community ambulating without assistive device male presents to the ED after a mechanical fall with right hip pain and an inability to ambulate. Beaulieu d a prior history of right hip pain which he has had a corticosteroid injection for recently. Denies any numbness, paresthesias or loss of distal motor function AVSS PMdHx: HTN, Right hip OA, Venous Stasis, BPH, Arrythmia Allergies: Hydrochlorothiazide Meds: See Reconciliation SurgHx: Mechanical hear valve, cataracts, Dacron Sleeve, Left Knee ACL, Cholecystectomy SocHx: Denies any present Drugs or Tob. Drinks EtOH socially FamHx: Non-contributory Gen: NAD, AAOx3 Right Hip- TTP of hip, unable to straight leg raise, pain with log roll & heel strike Motor: + EHL, FHL, TA, G/S Sensation grossly intact to light touch Pulses + DP, Post tib Compartments soft Negative calf tenderness Xrays & CT demonstrate Right Hip OA & Right hip non-displaced Intertrochanteric Hip Fracture 64 year old male with Right Non-displaced Intertrochanteric Hip Fracture -Plan for OR today -Analgesics PRN -DVT Prophylaxis -Bedrest -Plan for Right Hip Intramedullary Nailing due to patient's INR & recent infection risk from the corticosteroid injection. Thank you for the consultation.
[2019-12-25] MEDS ORDERED: HYDROMORPHONE 1MG/1ML INJ ONE (16:33)
--- NOTE | 2019-12-25 16:42 | NUR ---
Recvd patient from Surgery, AAOx3, Rt Lateral thigh dressing intact. No bleeding. no distress noted, keep monitoring, at bed side
--- NOTE | 2019-12-25 16:47 | NUR ---
OPERATIVE ORTHOPEDICS NOTE PreOp Dx: Right Intertrochanteric Hip Fracture PostOp Dx: Right Intertrochanteric Hip Fracture Operationg Performed: 1. Right Hip Intramedullary Nailing, 2. Flouroscopic interpretation Estimated Blood Loss: 100cc Drains: None Anesthesia: General Complications None Implants: Hui Gamme 3 System, Trochanteric Nail Kit [id number] x 130 degree gamma earline, 10.5 x 110 Lag Screw, 5 x 45 Distal Screw Indications for Procedure Patient is a 64 year old male who sustained a right intertrochanteric hip fracture after fall. He was admitted for preoperative medical clearance and taking to the operating room for an intramedullary nailing of the right hip fracture. Consent was signed on the chart. All risks and benefits regarding the procedure were explained. Risks of , infection, nerve or blood vessel injury or bleeding, need for blood transfusion, blood clots, failure to heal, need for further surgery were all explained and consent was signed. Description of Operative Procedure Patient was given Ancef 3 grams intravenously preop. He was taken to the OR where general anesthesia was provided. He was transferred over to the fracture table in supine position where a well padded post was positioned. The left lower extremity was well padded and placed out of the way for fluoroscopy. The operative extremity had abundant padding placed around the foot and ankle and it was placed in a leg thao. The hip was viewed under fluoroscopic interpretation The operative hip was cleaned with a chlorhexidine scrub, then alcohol and chloroprep. The area was followed with toweling out, followed by drying and placement of the shower curtain. After timeout confirming patient identity and laterality, an incision approximately 6 cm was made along the it band cephalad to the greater trochanter. A incision was made along the abductors and the guide pin was introduced at the greater trochanter. A guide pin was inserted in adequate position which was confirmed on fluoroscopy. An opening reamer was placed over the guide wire and pushed down to the lesser trochanter. The above mentioned nail was introduced into the canal. Next a guide wire was placed in preparation for the lag screw. The wire was visualized in proper AP & lateral position. The guide wire was measured and the neck and head were reamed over the guidewire. The above mentioned lag screw was placed in adequate position. The set screw was then placed. The distal screw was then focused on. Through the jib, the distal screw was drilled and the above mentioned screw was introduced to lock the screw distally. The guides were then removed. final imaging was obtained demonstrating the hardware in adequate position. The incisions were closed deep with vicryl and monocryl on the skin.. The incisions were cleaned and dressed with Aquacel, ABD and Foam Tape. The patient was then gently transferred back to the hospital bed and transferred to recovery without difficulty.
--- NOTE | 2019-12-25 19:27 | NUR ---
Patient received sitting up in bed. AAO x 4. at bedside. Patient complained of pain to right hip (10/24). Respirations even and non-labored. Heparin infusing at 15.6 cc/hr. LR infusing at 125 cc/hr. Safety measures in place. Patient instructed to call for assistance when needed . Call light within reach.
[2019-12-25] MEDS: CEFAZOLIN SOD 1 GM/NS 50ML 50 ML IV SCH (21:36)
[2019-12-25] MEDS ORDERED: MIDAZOLAM HCL 2 MG/2 ML VIAL ONE (21:39)
--- NOTE | 2019-12-25 23:40 | NUR ---
Blood specimen sent to lab for analysis of PTT level.
[2019-12-26] VITALS (8 sets, daily range): BP systolic 109–146; BP diastolic 60–95
--- NOTE | 2019-12-26 | NUR ---
Patient's PTT level recorded as 67.2. PTT level within therapeutic range. No dose adjustment made.
[2019-12-26] MEDS: HYDROMORPHONE 1MG/1ML INJ IV PRN ×3 (00:15→15:26)
[2019-12-26] MEDS ORDERED: HEPARIN 25,000 UNIT DRIP IV ONE (01:30)
[2019-12-26] MEDS: CEFAZOLIN SOD 1 GM/NS 50ML 50 ML IV SCH ×3 (05:41→22:00)
[2019-12-26] MEDS: HYDROMORPHONE 2MG/ML 2 MG/ML ML IV PRN ×2 (05:43→20:00)
[2019-12-26 06:34] LABS: BASOPHILS % 0.1 % (0.0-1.0); EOSINOPHILS % 0.1 % (0.0-6.0); HEMATOCRIT 35.3 % (38.2-49.6); HEMOGLOBIN 11.5 g/dL (14.0-18.0); LYMPHOCYTES # (AUTO) 0.7 (1.0-3.2); LYMPHOCYTES % 7.8 % (18.0-39.1); MEAN CORPUSCULAR HEMOGLOBIN 30.4 pg (28-32); MEAN CORPUSCULAR HGB CONC 32.6 g/dL (31-35); MEAN CORPUSCULAR VOLUME 93.4 fL (81-99); MONOCYTES # (AUTO) 0.8 (0.2-0.8); MONOCYTES % 8.6 % (4.4-11.3); NEUTROPHILS # (AUTO) 7.9 (2.1-6.9); NEUTROPHILS % 82.9 % (38.7-80.0); PLATELET COUNT 157 x10e3/uL (140-360); RED BLOOD COUNT 3.78 x10e6/uL (4.3-5.7); RED CELL DISTRIBUTION WIDTH 13.4 % (11.7-14.4)
--- NOTE | 2019-12-26 06:34 | NUR ---
IM- progress note O/N see below ROS: no f/c/s/N/V/D/WOOD/cp/sob/skin rash/confusion/dizziness/vision changes v/s revd PE tired appearing anicteric ns1s2; metallic S2 mod bs soft nt nd right hip tender no leg edema skin dry n. affect a&ox3; zavala labs./meds revd A/P: 64yoM Elderly fall- PT consult Right hip fx- ortho consult; use heparin gtt and hold before surgery AVR hx- use heparin gtt; check inr; hold coumadin UTI- IV ceftriaxone PAF- on AC; HR controlled; HTN- cont antiHTN meds; BB/CCB Obesity- check hba1c/lipids BMI 35.9- as above BPH- flomax Peripheral neuropathy- gabapentin Prop: pepcid on AC dipso: ortho repair soon. PreOp eval: 1.Functional status>4mets work 2.Surgical risk Intermediate 3.Clinical risk: No DM/CVA/CAD/CKD. Therefore, patient may proceed to surgery without further testing. Use Heparin gtt until hours before surgery. Cardiology consultation; 8-11 s/p surgical repair; f/u echo; coumadin restart. GHAZAL OBREGON MD, PHD.
--- NOTE | 2019-12-26 06:45 | NUR ---
Dr. Gaston here to see patient. New orders received.
[2019-12-26 06:55] LABS: ALANINE AMINOTRANSFERASE 98 IU/L (0-55); ALBUMIN 3.2 g/dL (3.5-5.0); ALBUMIN/GLOBULIN RATIO 1.3 (0.8-2.0); ALKALINE PHOSPHATASE 72 IU/L (40-150); ANION GAP 9.8 mmol/L (8-16); BLOOD UREA NITROGEN 12 mg/dL (7-26); BUN/CREATININE RATIO 19 (6-25); CALCIUM 8.2 mg/dL (8.4-10.2); CARBON DIOXIDE 30 mmol/L (22-29); CHLORIDE 104 mmol/L (98-107); CREATININE, SERUM 0.63 mg/dL (0.72-1.25); EST GLOMERULAR FILTRATION RATE > 60 ML/MIN (60-); GLUCOSE 120 mg/dL (74-118); POTASSIUM 3.8 mmol/L (3.5-5.1); SODIUM 140 mmol/L (136-145)
--- NOTE | 2019-12-26 07:00 | NUR ---
Patient resting comfortably. Walking rounds done . Bed-side report given to oncoming nurse.
--- NOTE | 2019-12-26 07:16 | NUR ---
Stopped Heparin infusion this time for 30 minutes (per Heparin protocol), will resume after 30 mins decrease by 150 units/hr
--- NOTE | 2019-12-26 07:40 | NUR ---
ORTHOPEDIC PROGRESS NOTE Patient seen & examined. Pain well controlled. No acute events overnight. No fevers or chills. VS T 98.1 HR 73 RR 18 BP 146/95 O2 97% Right Lower Extremity: Dressing clean, dry and intact Motor: + EHL, FHL, TA, G/S Sensation grossly intact to light touch Pulses + DP, Post tib Compartments soft Negative calf tenderness H/H 11.5/35.3 64 year male s/p Right Hip IMN (12/26/2019) -Analgesics PRN -DVT Prophylaxis as per medicine (discussed with Medicine okay to resume Heparin drip & Coumadin) -PT, WBAT -If labs are stable tomorrow, patient is orthopedically stable for discharge. Discharge instructions -Dressing: On 12/27/19, prior to discharge, remove Foam Tape & ABD dressing. Aquacel will be below. If Aquacel is clean, patient may keep on until follow up. If Aquacel is saturated or soiled, recommend new Aquacel prior to discharge. -Analgesics: as per medicine, may call my office for analgesics as needed -DVT Prophylaxis: as per medicine -Physical Therapy: Patient requesting home health at this time. Recommend Home Health professionals or [facility] if possible. -Follow up: Please have patient call office for follow up in 2 weeks. Thank you for the consultation Corinne Katz DO
[2019-12-26] MEDS: AMLODIPINE BESYLATE 10 MG TAB PO SCH (08:31)
[2019-12-26] MEDS: GABAPENTIN 300 MG CAP PO SCH ×3 (08:31→20:47)
[2019-12-26] MEDS: SENNOSIDES 8.6 MG TAB PO SCH ×2 (08:31→17:22)
[2019-12-26] MEDS: CEFTRIAXONE SOD 1 GM/NS 50 ML 50 ML IV SCH (08:31)
[2019-12-26] MEDS: DOCUSATE SODIUM 100 MG CAP PO SCH ×2 (08:31→17:22)
[2019-12-26] MEDS: FAMOTIDINE 20 MG/2 ML VIAL IV SCH ×2 (08:31→17:22)
[2019-12-26] MEDS: ATENOLOL 50 MG TAB PO SCH ×2 (08:31→17:22)
--- NOTE | 2019-12-26 13:40 | NUR ---
ORDER WAS RECEIVED FOR HH. CALL RECEIVED FROM MY STATING DR. COPOER WORKS CLOSE W [facility]. CALL TO [facility] @ [phone]. SPOKE W BRANDON. STATES THEY ARE NOT IN NETWORK W [facility]. CALL TO [facility] @ [phone]. THEY ARE ALSO NOT IN NETWORK W [facility]. CALL TO THE PT. DISCUSSED HH ORDER AND CHOICE. CHOICE WAS PROVIDED FOR IN NETWORK PROVIDERS: [facility], [facility]. EXPLAINED TO THE PT DR. COOPER'S HH AGENCIES HE WORKS W. PT INQUIRED ABOUT OUT OF POCKET COST FOR OUT OF NETWORK SERVICES. CM INFORMED THE COST WOULD COME FROM THE COMPANY OF HIS CHOICE. PT STATES HE WOULD LIKE TO LOOK AT THE COMPANIES AND REQUESTED A CALL BACK IN THE MORNING. CM IN AGREEMENT. WILL F/U IN THE AM.
[2019-12-26] MEDS ORDERED: WARFARIN SOD 3 MG TAB PO SCH (17:00)
[2019-12-26] MEDS: WARFARIN SOD 5 MG TAB PO SCH (17:22)
[2019-12-26] MEDS: LACTATED RINGER'S 1,000 ML IV SCH ×2 (17:28→23:55)
--- NOTE | 2019-12-26 19:27 | NUR ---
Received pt in bed awake a/o. No c/o at this time, no s/sx of distress noted. Bed low and locked, personal items within reach. Will cont to mon
[2019-12-26] MEDS: HEPARIN 25,000 UNIT/D5W 250ML 250 ML IV SCH (20:00)
[2019-12-26] MEDS: FINASTERIDE 5 MG TAB PO SCH (20:47)
[2019-12-26] MEDS: TAMSULOSIN HCL 0.4 MG CAP PO SCH (20:47)
[2019-12-27] VITALS (8 sets, daily range): BP systolic 94–120; BP diastolic 63–79
[2019-12-27] MEDS: HYDROMORPHONE 2MG/ML 2 MG/ML ML IV PRN ×2 (00:11→04:35)
[2019-12-27 06:06] LABS: BASOPHILS % 0.2 % (0.0-1.0); EOSINOPHILS # (AUTO) 0.3 (0.0-0.4); EOSINOPHILS % 2.9 % (0.0-6.0); HEMATOCRIT 30.4 % (38.2-49.6); HEMOGLOBIN 10.1 g/dL (14.0-18.0); LYMPHOCYTES % 10.7 % (18.0-39.1); MEAN CORPUSCULAR HEMOGLOBIN 31.2 pg (28-32); MEAN CORPUSCULAR HGB CONC 33.2 g/dL (31-35); MEAN CORPUSCULAR VOLUME 93.8 fL (81-99); MONOCYTES % 10.9 % (4.4-11.3); NEUTROPHILS # (AUTO) 6.7 (2.1-6.9); PLATELET COUNT 143 x10e3/uL (140-360); RED BLOOD COUNT 3.24 x10e6/uL (4.3-5.7); RED CELL DISTRIBUTION WIDTH 13.6 % (11.7-14.4)
[2019-12-27 06:12] LABS: INR 1.43; PROTHROMBIN TIME 18.3 seconds (11.9-14.5)
--- NOTE | 2019-12-27 07:00 | NUR ---
RECEIVED PATIENT RESTING IN BED NO S/S OF DISTRESS. BED LOW, WHEELS LOCKED, SIDE RAILS X2. CALL LIGHT IN REACH WILL CONTINUE TO MONITOR PATIENT.
--- NOTE | 2019-12-27 07:14 | NUR ---
ORTHOPEDIC PROGRESS NOTE Patient seen & examined. Working with PT. Ambulated well yesterday. Pain well controlled. No acute events overnight. No fevers or chills. VS T 98.2 HR 103 RR 20 BP 108/79 O2 98% Right Lower Extremity: Dressing clean, dry and intact Motor: + EHL, FHL, TA, G/S Sensation grossly intact to light touch Pulses + DP, Post tib Compartments soft Negative calf tenderness H/H 10.1/30.4 64 year male s/p Right Hip IMN POD # 2 -Analgesics PRN -DVT Prophylaxis as per medicine (discussed with Medicine okay to resume Heparin drip & Coumadin) -PT, WBAT -Patient is orthopedically stable for discharge. Discharge instructions -Dressing: On 12/27/19, prior to discharge, remove Foam Tape & ABD dressing. Aquacel will be below. If Aquacel is clean, patient may keep on until follow up. If Aquacel is saturated or soiled, recommend new Aquacel prior to discharge. -Analgesics: as per medicine, may call my office for analgesics as needed -DVT Prophylaxis: as per medicine -Physical Therapy: Patient requesting home health at this time. Recommend Home Health professionals or [facility] if possible. -Follow up: Please have patient call office for follow up in 2 weeks. Thank you for the consultation Corinne Katz DO
[2019-12-27] MEDS: LACTATED RINGER'S 1,000 ML IV SCH ×2 (07:55→15:55)
[2019-12-27] MEDS: ATENOLOL 50 MG TAB PO SCH ×3 (08:06→10:42)
[2019-12-27] MEDS: AMLODIPINE BESYLATE 10 MG TAB PO SCH (08:06)
--- NOTE | 2019-12-27 08:48 | NUR ---
NEW ORDERS RECEIVED FROM NICOLE RICHMOND. DC HEPARIN DRIP AND 1L NS BOLUS. NEW ORDERS IMPLEMENTED.
[2019-12-27] MEDS ORDERED: SODIUM CHLORIDE 0.9% 1000ML 1,000 ML ONE (08:49)
[2019-12-27] MEDS: GABAPENTIN 300 MG CAP PO SCH ×3 (08:52→21:14)
[2019-12-27] MEDS: DOCUSATE SODIUM 100 MG CAP PO SCH ×2 (08:52→16:34)
[2019-12-27] MEDS: FAMOTIDINE 20 MG/2 ML VIAL IV SCH ×2 (08:52→16:34)
[2019-12-27] MEDS: SENNOSIDES 8.6 MG TAB PO SCH ×2 (08:52→16:34)
[2019-12-27] MEDS: AMLODIPINE BESYLATE 5 MG TAB PO SCH (08:52)
[2019-12-27] MEDS ORDERED: ASPIRIN 81 MG ENTERIC COATED PO SCH (09:00)
--- NOTE | 2019-12-27 09:25 | NUR ---
CALL RECEIVED FROM PT'S ; IVETTE CABELLO, REGARDING HH CHOICE. STATES THEY WOULD LIKE TO CHOOSE [facility] @ [phone]. DISCUSSED FREQUENCY AND ADMISSION PROCESS. CALL TO [facility] AND CONFIRMED FAX #. NORM JARRETT. REFERRAL TO BE FAXED TO [facility] @ OFF: [phone] / FAX: [phone]. VALERIO TAYLOR
[2019-12-27] MEDS ORDERED: SODIUM CHLORIDE 0.9% 1000ML 1,000 ML IV SCH (09:30)
[2019-12-27] MEDS: CEFTRIAXONE SOD 1 GM/NS 50 ML 50 ML IV SCH (10:34)
[2019-12-27] MEDS: HYDROMORPHONE 1MG/1ML INJ IV PRN ×3 (12:16→21:14)
[2019-12-27 12:48] LABS: HEMATOCRIT 34.5 % (38.2-49.6); HEMOGLOBIN 11.2 g/dL (14.0-18.0)
--- NOTE | 2019-12-27 14:52 | NUR ---
IM- progress note O/N see below ROS: no f/c/s/N/V/D/WOOD/cp/sob/skin rash/confusion/dizziness/vision changes v/s revd PE tired appearing anicteric ns1s2; metallic S2 mod bs soft nt nd right hip tender no leg edema skin dry n. affect a&ox3; zavala labs./meds revd A/P: 64yoM Elderly fall- PT consult Right hip fx- ortho consult; use heparin gtt and hold before surgery AVR hx- use heparin gtt; check inr; hold coumadin UTI- IV ceftriaxone PAF- on AC; HR controlled; HTN- cont antiHTN meds; BB/CCB Obesity- check hba1c/lipids BMI 35.9- as above BPH- flomax Peripheral neuropathy- gabapentin Prop: pepcid on AC dipso: ortho repair soon. PreOp eval: 1.Functional status>4mets work 2.Surgical risk Intermediate 3.Clinical risk: No DM/CVA/CAD/CKD. Therefore, patient may proceed to surgery without further testing. Use Heparin gtt until hours before surgery. Cardiology consultation; 8-11 s/p surgical repair; f/u echo; coumadin restart. 8-12 inr improving; continue bridging; GHAZAL OBREGON MD, PHD.
[2019-12-27] MEDS: WARFARIN SOD 5 MG TAB PO SCH (16:34)
[2019-12-27] MEDS: TAMSULOSIN HCL 0.4 MG CAP PO SCH (21:14)
[2019-12-27] MEDS: FINASTERIDE 5 MG TAB PO SCH (21:14)
--- NOTE | 2019-12-27 22:00 | NUR ---
NOTIFIED BY PHARMACIST HELPER HR 200 AND AFIB WITH RVR.
--- NOTE | 2019-12-27 22:11 | NUR ---
SPOKE TO MD MULLER REGARDING HR 200 AND A FIB WITH RVR WITH ACTIVITY. NEW ORDERS RECEIVED.
[2019-12-27] MEDS ORDERED: ATENOLOL 50 MG TAB PO ONE (22:15)
[2019-12-28] VITALS (8 sets, daily range): BP systolic 96–129; BP diastolic 53–85
--- NOTE | 2019-12-28 00:59 | NUR ---
PATIENT RESTING AT SIDE OF BED. NO COMPLAINTS OR ADVERSE SIGNS AT THIS TIME.
[2019-12-28 06:16] LABS: BASOPHILS % 0.2 % (0.0-1.0); EOSINOPHILS # (AUTO) 0.2 (0.0-0.4); EOSINOPHILS % 1.8 % (0.0-6.0); HEMATOCRIT 25.8 % (38.2-49.6); HEMOGLOBIN 8.6 g/dL (14.0-18.0); LYMPHOCYTES # (AUTO) 0.9 (1.0-3.2); LYMPHOCYTES % 10.2 % (18.0-39.1); MEAN CORPUSCULAR HEMOGLOBIN 31.3 pg (28-32); MEAN CORPUSCULAR HGB CONC 33.3 g/dL (31-35); MEAN CORPUSCULAR VOLUME 93.8 fL (81-99); MONOCYTES # (AUTO) 1.1 (0.2-0.8); MONOCYTES % 12.9 % (4.4-11.3); NEUTROPHILS # (AUTO) 6.4 (2.1-6.9); NEUTROPHILS % 74.4 % (38.7-80.0); PLATELET COUNT 148 x10e3/uL (140-360); RED BLOOD COUNT 2.75 x10e6/uL (4.3-5.7); RED CELL DISTRIBUTION WIDTH 13.9 % (11.7-14.4)
[2019-12-28 06:40] LABS: INR 1.39; PROTHROMBIN TIME 17.9 seconds (11.9-14.5)
--- NOTE | 2019-12-28 06:44 | NUR ---
IM- progress note O/N see below ROS: no f/c/s/N/V/D/WOOD/cp/sob/skin rash/confusion/dizziness/vision changes v/s revd PE tired appearing anicteric ns1s2; metallic S2 mod bs soft nt nd right hip tender no leg edema skin dry n. affect a&ox3; zavala labs./meds revd A/P: 64yoM Elderly fall- PT consult Right hip fx- ortho consult; use heparin gtt and hold before surgery AVR hx- use heparin gtt; check inr; hold coumadin UTI- IV ceftriaxone PAF- on AC; HR controlled; HTN- cont antiHTN meds; BB/CCB Obesity- check hba1c/lipids BMI 35.9- as above BPH- flomax Peripheral neuropathy- gabapentin Prop: pepcid on AC dipso: ortho repair soon. PreOp eval: 1.Functional status>4mets work 2.Surgical risk Intermediate 3.Clinical risk: No DM/CVA/CAD/CKD. Therefore, patient may proceed to surgery without further testing. Use Heparin gtt until hours before surgery. Cardiology consultation; 8-11 s/p surgical repair; f/u echo; coumadin restart. 8-12 inr improving; continue bridging; 8-13 f/u inr; adjust coumadin to home dose; GHAZAL OBREGON MD, PHD.
--- NOTE | 2019-12-28 07:00 | NUR ---
RECEIVED PATIENT RESTING IN BED NO S/S OF DISTRESS. BED LOW, WHEELS LOCKED, SIDE RAILS X2. CALL LIGHT IN REACH WILL CONTINUE TO MONITOR PATIENT.
--- NOTE | 2019-12-28 07:04 | NUR ---
REPORT GIVEN TO [facility] NURSE. ALERT AND ORIENTED. RESTING IN BED. NO SIGNS IV INFILTRATION. BED LOCKED AND IN LOW POSITION. CALL LIGHT WITHIN REACH. Addendum: 12/28/19 at 0705 by Zabrina Cevallos RN [facility] ALERT AND ORIENTED. RESTING AT BEDSIDE. NO SIGNS IV INFILTRATION. BED LOCKED AND IN LOW POSITION. CALL LIGHT WITHIN REACH. AT BEDSIDE. [facility] NURSE AWARE A FIB WITH RVR. REPORTS THEY WILL CALL OUTPATIENT FACILITY PHYSICAL THERAPIST REGARDING TELE READING.
[2019-12-28] MEDS ORDERED: METOPROLOL TARTRATE INJ 1 MG/ML VIAL IV NR (07:15)
[2019-12-28] MEDS: AMLODIPINE BESYLATE 5 MG TAB PO SCH (08:02)
[2019-12-28] MEDS: DOCUSATE SODIUM 100 MG CAP PO SCH ×2 (08:15→16:24)
[2019-12-28] MEDS: SENNOSIDES 8.6 MG TAB PO SCH ×2 (08:15→16:24)
[2019-12-28] MEDS: CEFTRIAXONE SOD 1 GM/NS 50 ML 50 ML IV SCH (08:15)
[2019-12-28] MEDS: FAMOTIDINE 20 MG/2 ML VIAL IV SCH ×2 (08:15→16:24)
[2019-12-28] MEDS: GABAPENTIN 300 MG CAP PO SCH ×3 (08:15→21:23)
[2019-12-28] MEDS: ACETAMINOPHEN/CODEINE 300MG - 30MG TAB PO PRN ×2 (08:19→15:54)
[2019-12-28] MEDS ORDERED: FINASTERIDE 5 MG TAB PO SCH (09:00)
[2019-12-28] MEDS ORDERED: TAMSULOSIN HCL 0.4 MG CAP PO SCH (09:00)
[2019-12-28] MEDS ORDERED: ATENOLOL 50 MG TAB PO SCH (09:00)
[2019-12-28] MEDS: ATENOLOL 50 MG TAB PO SCH ×2 (14:19→21:23)
[2019-12-28] MEDS ORDERED: SEVOFLURANE INHAL SOLN 250 ML PEN BTL INH ONE (14:44)
[2019-12-28] MEDS ORDERED: PROPOFOL IV EMULSION 10 MG/ML 20 ML VIAL IV ONE (14:44)
[2019-12-28] MEDS ORDERED: LIDOCAINE HCL 2% LOCAL INJ 5 ML SDV VIAL INJ ONE (14:44)
[2019-12-28] MEDS ORDERED: ONDANSETRON HCL INJ 2MG/ML 2ML 2 MG/ML VIAL IV ONE (14:44)
[2019-12-28] MEDS ORDERED: DEXAMETHASONE SOD PHOS INJ 4 MG/ML VIAL IV ONE (14:44)
[2019-12-28] MEDS: FINASTERIDE 5 MG TAB PO SCH (16:24)
[2019-12-28] MEDS: TAMSULOSIN HCL 0.4 MG CAP PO SCH (16:24)
[2019-12-28] MEDS: WARFARIN SOD 5 MG TAB PO SCH (16:24)
--- NOTE | 2019-12-28 18:38 | NUR ---
PAGED DR. COOPER REGARDING BRUISING TO SURGICAL SITE.
--- NOTE | 2019-12-28 20:08 | NUR ---
PERFORMED BLADDER SCAN. 476 ML. CALLED MD OBREGON. LEFT MESSAGE. AWAITING CALL BACK.
--- NOTE | 2019-12-28 21:17 | NUR ---
SPOKE TO MD OBREGON. NEW ORDERS RECEIVED.
--- NOTE | 2019-12-28 22:49 | NUR ---
STRAIGHT CATH PERFORMED PER MD ORDER. STERILE TECHNIQUE. OBSERVING STAFF NURSE PRESENT. TOLERATED WELL. 600 ML URINE DRAINED.
[2019-12-29] VITALS (9 sets, daily range): BP systolic 101–136; BP diastolic 69–81
--- NOTE | 2019-12-29 00:27 | NUR ---
SPOKE TO MD OBREGON. NEW ORDERS RECEIVED.
--- NOTE | 2019-12-29 01:20 | NUR ---
STRAIGHT CATH PERFORMED PER MD ORDER. OBSERVED BY STAFF NURSE AT BEDSIDE. STERILE TECHNIQUE. 600 ML DRAINED. TOLERATED PROCEDURE WELL.
[2019-12-29] MEDS: ACETAMINOPHEN/CODEINE 300MG - 30MG TAB PO PRN ×3 (01:40→16:19)
--- NOTE | 2019-12-29 02:26 | NUR ---
SPOKE TO MD OBREGON. NEW ORDERS RECEIVED.
--- NOTE | 2019-12-29 02:50 | NUR ---
16F GONZALEZ CATHETER PLACED PER MD ORDER. SECOND NURSE AT BEDSIDE. STERILE TECHNIQUE. 800 ML. TOLERATED PROCEDURE WELL.
[2019-12-29] MEDS: ATENOLOL 50 MG TAB PO SCH ×3 (06:15→20:51)
--- NOTE | 2019-12-29 06:38 | NUR ---
CALLED MD LUCAS REGARDING CONSULT. AWAITING CALL BACK.
--- NOTE | 2019-12-29 06:39 | NUR ---
IM- progress note O/N see below ROS: no f/c/s/N/V/D/WOOD/cp/sob/skin rash/confusion/dizziness/vision changes v/s revd PE tired appearing anicteric ns1s2; metallic S2 mod bs soft nt nd right hip tender no leg edema skin dry n. affect a&ox3; zavala labs./meds revd A/P: 64yoM Elderly fall- PT consult Right hip fx- ortho consult; use heparin gtt and hold before surgery AVR hx- use heparin gtt; check inr; hold coumadin UTI- IV ceftriaxone PAF- on AC; HR controlled; HTN- cont antiHTN meds; BB/CCB Obesity- check hba1c/lipids BMI 35.9- as above BPH- flomax Peripheral neuropathy- gabapentin Prop: pepcid on AC dipso: ortho repair soon. PreOp eval: 1.Functional status>4mets work 2.Surgical risk Intermediate 3.Clinical risk: No DM/CVA/CAD/CKD. Therefore, patient may proceed to surgery without further testing. Use Heparin gtt until hours before surgery. Cardiology consultation; 8-11 s/p surgical repair; f/u echo; coumadin restart. 8-12 inr improving; continue bridging; 8-13 f/u inr; adjust coumadin to home dose; 8-14 BPH and Urinary retention- straight cath 3 times, needed lind O/N. urology consulted; on flomax/finasteride/cialis. check H/H and inr. GHAZAL OBREGON MD, PHD.
[2019-12-29 06:44] LABS: BASOPHILS % 0.3 % (0.0-1.0); EOSINOPHILS # (AUTO) 0.1 (0.0-0.4); EOSINOPHILS % 0.9 % (0.0-6.0); HEMATOCRIT 26.3 % (38.2-49.6); HEMOGLOBIN 8.8 g/dL (14.0-18.0); LYMPHOCYTES % 12.8 % (18.0-39.1); MEAN CORPUSCULAR HEMOGLOBIN 30.6 pg (28-32); MEAN CORPUSCULAR HGB CONC 33.5 g/dL (31-35); MEAN CORPUSCULAR VOLUME 91.3 fL (81-99); MONOCYTES % 12.4 % (4.4-11.3); NEUTROPHILS # (AUTO) 5.9 (2.1-6.9); NEUTROPHILS % 73.1 % (38.7-80.0); PLATELET COUNT 181 x10e3/uL (140-360); RED BLOOD COUNT 2.88 x10e6/uL (4.3-5.7); RED CELL DISTRIBUTION WIDTH 13.6 % (11.7-14.4)
[2019-12-29 06:56] LABS: INR 1.4
--- NOTE | 2019-12-29 07:00 | NUR ---
RECEIVED BEDSIDE REPORT FROM OFF GOING NIGHT NURSE. PATIENT IN STABLE CONDITION, NO S/S OF DISTRESS NOTED. NO PAIN VOICED. TELEMETRY APPLIED. IV SITE ASYMPTOMATIC AND PATENT, TRANSPARENT DRESSING C/D/I. DRESSING C/D/I TO THE RIGHT HIP AREA D/T SURGERY. BED IN LOWEST POSITION AND LOCKED, SIDE RAILS X 2. CALL LIGHT WITHIN REACH.
[2019-12-29 07:07] LABS: ALANINE AMINOTRANSFERASE 111 IU/L (0-55); ALBUMIN 3.1 g/dL (3.5-5.0); ALBUMIN/GLOBULIN RATIO 1.1 (0.8-2.0); ALKALINE PHOSPHATASE 106 IU/L (40-150); ANION GAP 9.7 mmol/L (8-16); BLOOD UREA NITROGEN 10 mg/dL (7-26); BUN/CREATININE RATIO 16 (6-25); CALCIUM 8.7 mg/dL (8.4-10.2); CARBON DIOXIDE 31 mmol/L (22-29); CHLORIDE 105 mmol/L (98-107); CREATININE, SERUM 0.64 mg/dL (0.72-1.25); EST GLOMERULAR FILTRATION RATE > 60 ML/MIN (60-); GLUCOSE 120 mg/dL (74-118); POTASSIUM 3.7 mmol/L (3.5-5.1); SODIUM 142 mmol/L (136-145)
--- NOTE | 2019-12-29 07:12 | NUR ---
REPORT GIVEN TO DAYSHIFT NURSE. ALERT AND RESTING IN BED. NO SIGNS IV INFILTRATION. BED LOCKED AND IN LOW POSITION. CALL LIGHT WITHIN REACH. AT BEDSIDE.
[2019-12-29] MEDS: CEFTRIAXONE SOD 1 GM/NS 50 ML 50 ML IV SCH (08:50)
[2019-12-29] MEDS: SENNOSIDES 8.6 MG TAB PO SCH ×2 (08:55→16:17)
[2019-12-29] MEDS: FAMOTIDINE 20 MG/2 ML VIAL IV SCH ×2 (08:55→16:17)
[2019-12-29] MEDS: GABAPENTIN 300 MG CAP PO SCH ×3 (08:55→20:50)
[2019-12-29] MEDS: DOCUSATE SODIUM 100 MG CAP PO SCH ×2 (08:55→16:17)
--- NOTE | 2019-12-29 11:19 | Consultation ---
DATE OF CONSULTATION: 12/29/2019 Urology Consultation Consultation is called by Dr. Gaston. CHIEF COMPLAINT AND REASON FOR CONSULTATION: Urinary retention, BPH. HISTORY OF PRESENT ILLNESS: Mr. Green is a very pleasant 64-year-old patient, admitted to the hospital with a right hip fracture. He denied dysuria. He denied gross hematuria. Has been seen a urologist, Dr. Bustillos in [facility]. He is on maximum medical therapy consisting of BPH, finasteride and Cialis. Postoperatively, the patient mainly experienced acute urinary retention with 900 mL in the bladder. Eaton catheter was placed per nursing with clear yellow urine returned. The patient denied dysuria. He denied gross hematuria. PAST MEDICAL HISTORY: As above, BPH, obstructive sleep apnea, degenerative joint disease, atrial fibrillation status post atrial valve repair with ascending aortic aneurysm repair in 2004, venous insufficiency, status post cholecystectomy, status post left knee surgery, and status post right hip injection. MEDICATIONS: Please see MAR. FAMILY HISTORY: Denied urologic stones or malignancies. REVIEW OF SYSTEMS: Noncontributory other than problems mentioned above for 12-organ systems. PHYSICAL EXAMINATION: GENERAL: Middle-aged male, in no acute distress currently. VITAL SIGNS: Temperature 97.7, pulse 87, respirations 14, and blood pressure 114/69. Height 6 feet 4 inches, weight 294 pounds, BMI 35.78. HEENT: Sclerae anicteric. NECK: Supple. BACK: Without costovertebral angle tenderness bilaterally. ABDOMEN: Soft. It is nontender. It is nondistended. No palpable mass. No palpable hernias. No palpable adenopathy. : Normal male external genitalia with a clear yellow urine in Eaton catheter. EXTREMITIES: Right lower extremity edema. NEURO: Moves all 4 extremities. PSYCH: Alert and mood appropriate. SKIN: Intact. Normal color. PERTINENT LABORATORY DATA: Hemoglobin 8.8, hematocrit 26, platelet count 181,000, and white blood cell count 8000. Sodium 142, potassium 3.7, chloride 105, bicarb 31, BUN 10, creatinine 0.6, and glucose 120. Bilirubin 1.7, AST 130, and ALT 111. Urinalysis 6 to 10 reds, 6 to 10 whites. IMPRESSION: 1. Urinary retention. 2. Benign prostatic hyperplasia. 3. Urinary tract infection, present on admission. 4. Microscopic hematuria. 5. Obesity. PLAN: The patient is on maximal medical therapy. Do not discontinue the Eaton catheter. The patient is to follow up with his urologist as an outpatient for consideration of surgical intervention versus urodynamic studies. Thank you for allowing me to participate in the care of your patient. We will be happy to follow along with you. MD LAVERN Márquez/MODL /[id number] cc: Dr. Nathaniel Gaston MD
[2019-12-29] MEDS: FINASTERIDE 5 MG TAB PO SCH (16:17)
[2019-12-29] MEDS: TAMSULOSIN HCL 0.4 MG CAP PO SCH (16:17)
[2019-12-29] MEDS ORDERED: WARFARIN SOD 5 MG TAB PO SCH (17:00)
--- NOTE | 2019-12-29 19:10 | NUR ---
Received report from day nurse. patient is resting comfortably in the bed. bed is in lowest position and call light is within reach.
--- NOTE | 2019-12-29 19:29 | NUR ---
COMPLETED BEDSIDE REPORT AND ROUNDING WITH ONCOMING NIGHT NURSE. PATIENT IN STABLE CONDITION, NO S/S OF DISTRESS NOTED. NO PAIN VOICED. TELEMETRY APPLIED. IV SITE ASYMPTOMATIC AND PATENT, TRANSPARENT DRESSING C/D/I. DRESSING C/D/I TO THE RIGHT HIP AREA D/T SURGERY. GONZALEZ DRAINING CLEAR YELLOW URINE INTO DRAINAGE BAG. BED IN LOWEST POSITION AND LOCKED, SIDE RAILS X 2. CALL LIGHT WITHIN REACH.
[2019-12-30] MEDS: ACETAMINOPHEN/CODEINE 300MG - 30MG TAB PO PRN ×2 (00:33→05:34)
[2019-12-30 04:20] VITALS: BP 123/66
[2019-12-30] MEDS: ATENOLOL 50 MG TAB PO SCH (06:08)
--- NOTE | 2019-12-30 07:00 | NUR ---
patient is resting comfortably in the bed. bed is in lowest position.
[2019-12-30 07:45] VITALS: BP 138/78
[2019-12-30] MEDS ORDERED: SENOKOT8.6 MG PO (08:20)
[2019-12-30] MEDS: GABAPENTIN 300 MG CAP PO SCH (08:22)
[2019-12-30] MEDS: DOCUSATE SODIUM 100 MG CAP PO SCH (08:22)
[2019-12-30] MEDS: FAMOTIDINE 20 MG/2 ML VIAL IV SCH (08:22)
[2019-12-30] MEDS ORDERED: ULTRAM 50MG50 MG PO (08:22)
[2019-12-30] MEDS: SENNOSIDES 8.6 MG TAB PO SCH (08:23)
--- NOTE | 2019-12-30 08:24 | NUR ---
D/C summary Principal dx: Elderly fall- PT consult Right hip fx- ortho consult; use heparin gtt and hold before surgery AVR hx- use heparin gtt; check inr; hold coumadin UTI- IV ceftriaxone Urinary retention/BPH- lind placed; f/u urology outpt. Secondary Dx: PAF- on AC; HR controlled; HTN- cont antiHTN meds; BB/CCB Obesity- check hba1c/lipids BMI 35.9- as above BPH- flomax Peripheral neuropathy- gabapentin Prop: pepcid on AC dipso: ortho repair soon. PreOp eval: 1.Functional status>4mets work 2.Surgical risk Intermediate 3.Clinical risk: No DM/CVA/CAD/CKD. Therefore, patient may proceed to surgery without further testing. Use Heparin gtt until hours before surgery. Cardiology consultation; 8-11 s/p surgical repair; f/u echo; coumadin restart. 8-12 inr improving; continue bridging; 8-13 f/u inr; adjust coumadin to home dose; 8-14 BPH and Urinary retention- straight cath 3 times, needed lind O/N. urology consulted; on flomax/finasteride/cialis. check H/H and inr. d/c home with PT stable d/c.35mins f/u pcp 2 day and cardiology 1 week and urology 1 week and orhopedics as directed GHAZAL OBREGON MD, PHD.
[2019-12-30 08:44] VITALS: BP 138/78
[2019-12-30] MEDS ORDERED: CYCLOBENZAPRINE5 MG PO ×2 (11:20→11:22)
[2019-12-30 11:48] VITALS: BP 127/79
--- NOTE | 2019-12-30 12:08 | NUR ---
Nutrition Screen Note RD Recommendation for Physician:Continue diet as ordered and honor pt's food preferences for vegan meals Plan of Care: RD following monitoring for tolerance and adequacy Nutrition reason for involvement: MD Consult, RN Consult, Nutrition Dx Risk Trigger, Follow up, LOS, Pt request, etc. Nutrition Risk Trigger- MST Primary Diagnose(s): right hip fx. PMH:atrial fibrillation, cholecystectomy Ht:76 in Wt:294 lbs BMI: 35.8kg/m2 IBW: [address] Assessment: Pt states that he prefers to eat more vegetable and would like more vegan selections. Pt states that he has been eating well and denies and known food allergies, nausea, vomiting, or diarrhea. Pt denies any difficulty chewing or swallowing. Pt denies any significant wt changes. Current Diet: Regular diet Malnutrition Evaluation (12/30/2019) The patient does not meet criteria for a specified degree of malnutrition at this time. Will re-evaluate at follow-up as appropriate. Diet Education Needs Assessment: Diet education not indicated at this time.. Diet tolerance: Tolerating PO diet Nutrition Care Level: norman Jackson RD, LD, CNSC
--- NOTE | 2019-12-30 12:18 | NUR ---
Received order for bariatric RW. Spoke to pt and at bedside. They state to use any company in network with insurance. Choice letter signed for [employer] and [employer]. Copy of choice letter given to pt's . Signed copy placed in front of chart. CM called DME companies who state that they are unable to verify insurance over the weekend so they will not be able to deliver today. [employer]ILLE [employer] got permission to loan out walker to pt and had pt sign agreement to return walker once his is delivered. Referral for walker faxed to [facility] [employer]. Mauricio was notified of referral. / F [phone].
--- NOTE | 2019-12-30 12:37 | NUR ---
Patient discharged home, Prescription given, Dr Armstrong and Dr Gaston had rounds, Talked to Dr Katz , talked to them regarding the bruise around Right Hip and thigh,No new orders, dressing intact, Not in any distress, Explained to patient and demonstrated to his about lind care, Extra Leg bag given, 2 IVs removed from Both arms with tip intact, No S/S of infiltration noted, Transported him in wheelchair with assist, Hospital walker provided.
== END 2019-12-30 12:24 | disposition home or self-care (01) | DRG 481 ==
LOC: FSED 13:24 → ERHOLD 15:23 → MED/SURG3 18:37 → UNDODISIN 12-29 11:35
PROVIDERS: ADMIT Internal Medicine; ATTEND Internal Medicine
PROC: 0QH606Z Insertion of Intramedullary Internal Fixation Device into Right Upper Femur, Open Approach (ICD-10-PCS; principal; 2019-12-25 13:00)
DX: S72.144A Nondisplaced intertrochanteric fracture of right femur, initial encounter for closed fracture (principal); N39.0 Urinary tract infection, site not specified; W01.0XXA Fall on same level from slipping, tripping and stumbling without subsequent striking against object, initial encounter; Y93.01 Activity, walking, marching and hiking; Y92.017 Garden or yard in single-family (private) house as the place of occurrence of the external cause; I10 Essential (primary) hypertension; Z95.2 Presence of prosthetic heart valve; G62.9 Polyneuropathy, unspecified; N40.0 Benign prostatic hyperplasia without lower urinary tract symptoms; I71.4 Abdominal aortic aneurysm, without rupture; I48.0 Paroxysmal atrial fibrillation; Z90.49 Acquired absence of other specified parts of digestive tract; E66.9 Obesity, unspecified; Z68.35 Body mass index [BMI] 35.0-35.9, adult; G47.33 Obstructive sleep apnea (adult) (pediatric); Z79.01 Long term (current) use of anticoagulants; R33.9 Retention of urine, unspecified
CPT/HCPCS: 36415; 71045; 72192; 76000; 80048; 80053; 81001; 82948; 85014; 85018; 85025; 85610; 85730; 86850; 86900; 93005; 93306; 96365; 96366; 96372; 97139; 99284; C1713; J0690; J0696; J1100; J1170; J1644; J1885; J2001; J2175; J2250; J2405; J3010; J7030; J7121; Q0162; U0002

== ENCOUNTER 2020-01-09 06:48 | Emergency (ER) | payer OTHER ==
[~2020-01-09] VITALS: Ht 185.4 cm; Wt 127.0 kg
[~2020-01-09 06:48] MED LIST changes: +CIALIS5 MG PO; +CYCLOBENZAPRINE5 MG PO; +FINASTERIDE5 MG PO; +SENOKOT8.6 MG PO; +ULTRAM 50MG50 MG PO
--- OUTSIDE RECORDS SUMMARY | 2020-01-09 07:09 | XMS REPORT | Continuity of Care Document ---
Author Author [facility] t Organization [facility] Address [address] [place] [address] Phone Unavailable Care Team Providers Care Digital Marketing Coordinator Name Role Phone NONSTAFF PCP Unavailable GHAZAL OBREGON Attphys Unavailable JOSIE GOODMAN M.D. Attphys Unavailable TERESA GALLAGHER Attphys Unavailable AJNEENA CLARK Attphys Unavailable GHAZAL OBREGON Admphys Unavailable TERESA GALLAGHER Admphys Unavailable Payers Payer Name Policy Type Policy Number Effective Date Expiration Date [facility] [id number] 2010 00:00:00 [facility] Problems Condition Name Condition Details Condition Category Status Onset Date Resolution Date Last Treatment Date Treating Clinician Comments Source Atrial fibrillation Atrial fibrillation Disease Active 2018-03-25 00:00 :00 [facility] Elevated prostate specific antigen [PSA] Elevated pros davis specific antigen [PSA] Disease Active 2017-06-09 00:00:00 MD Nichole toussaint Encounter for screening for malignant neoplasm of pros davis Encounter for screening for malignant neoplasm of prostate Disease Active 201 11-20-25 00:00:00 MD Mondragon Small bowel obstruction Problem Active 2015-01-06 00:00:00 [facility] Right hip pain Right hip pain Problem Active [facility] Osteoarthritis of right hip Osteoarthritis of right hip Problem Active [facility] Encounter for laboratory testing for COVID-19 virus En counter for laboratory testing for COVID-19 virus Problem Active [facility] Intertrochanteric fracture of right femur Problem Active [facility] Acute pain due to trauma Problem Active [facility] Allergies, Adverse Reactions, Alerts Allergy Name Allergy Type Status Severity Reaction(s) Onset Date Inacti ve Date Treating Clinician Comments Source Amiodarone Analogues Propensity to adverse reactions Active 2018-03-25 00:00:00 Developed thyroid issues after p rolonged use [facility] Family History Family Member Diagnosis Comments Start Date Stop Date Source Natural brother -Melanoma MD Early on Natural father Diabetes MD Idania sood Natural mother -Breast cancer on Natural mother Hypertension Romario son Paternal aunt -Thoracic or Lung MD Varela nderson Paternal uncle -Gastrointestinal (Esophagus , Liver, Bile Duct, Stomach, Pancreas, Colon, Rectum, Anus MD Mondragon Social History Social Habit Start Date Stop Date Quantity Comments Source Sex Assigned At MD Mondragon Alcohol Comment 2018-03-25 00:00:00 2018-03-25 00:00:00 Seldom [facility] Cigarettes smoked current (pack per day) - [...] Dosage Frequency Signature (SIG) Comments Components Source Tramadol Hcl (Ultram 50MG*) 50 Mg TAB Tramadol Hcl (Ultram 5 0MG*) 50 Mg TAB 2019-12-30 08:22:00 Yes 50 Every 6 Hours as n eeded for Pain [facility] Sennosides (Senokot) 8.6 Mg TABLET Sennosides (Senokot) 8.6 Mg TABLET 2019-12-30 08:20:00 Yes 8.6 Twice A Day I [facility] furosemide (LASIX) 40 MG tablet 2018-03-25 08:45:46 Yes 20mg QD Take 20 mg by mouth daily . [facility] warfarin (COUMADIN) 10 MG tablet 2018-03-25 08:41:21 Yes 10mg QD Take 10 mg by mouth daily Pt takes 10 mg warfarin daily, 12.5 mg on Fridays only. [facility] guanFACINE (TENEX) 2 MG tablet 2018-03-24 13:02:03 Yes 2mg QD Take 2 mg by mouth nightly. [facility] quinapril (ACCUPRIL) 40 MG tablet 2018-03-24 13:02:03 Yes 40mg Q.5D Take 40 mg by mouth 2 (two) times daily. [facility] gabapentin (NEURONTIN) 300 MG capsule 2018-03-24 13:02:03 Yes 300mg Q.5D Take 300 mg by mouth 2 (two) times daily. [facility] glucosam/chond-msm1/C/vickie/bor (LINPSICKDUZ-XQGCM-PSU COMPLE X ORAL) 2018-03-24 13:02:03 Yes 2{tbl} QD Take 2 tablets by mouth carolin goyal [facility] tamsulosin (FLOMAX) 0.4 mg Cap 24 hr capsule 2018-03-24 13:02:03 Yes .4mg QD Take 0.4 mg by mouth daily. [facility] amLODIPine (NORVASC) 10 MG tablet 2018-03-24 13:02:02 Yes 10mg QD Take 10 mg by mouth daily. [facility] atenolol (TENORMIN) 50 MG tablet 2018-03-24 13:02:02 Yes 50mg Q.5D Take 50 mg by mouth 2 (two) times daily. [facility] guanFACINE (TENEX) 2 mg tablet 2016-11-23 00:00:00 [...] 50 mg by mouth daily. MD Mondragon Amlodipine Besylate Amlodipine Besylate 2015-01-08 12:13:00 Yes 10 Daily [facility] Atenolol Atenolol Yes 50 Twice A Day [facility] Cyclobenzaprine Hcl (Flexeril) 5 Mg TABLET Cyclobenzap rine Hcl (Flexeril) 5 Mg TABLET Yes Every 8 Hours [facility] Cyclobenzaprine Hcl (Flexeril) 5 Mg TABLET Cyclobenzap rine Hcl (Flexeril) 5 Mg TABLET Yes Every 8 Hours [facility] Finasteride Finasteride Yes 5 Daily [facility] Furosemide Furosemide Yes 40 Daily I [facility] Gabapentin Gabapentin Yes 300 Three Times A Day [facility] Quinapril Hcl (Accupril) 40 Mg TABLET Quinapril Hcl (Accupril) 40 M g TABLET Yes 40 Twice A Day [facility] Tadalafil (Cialis) 5 Mg TABLET Tadalafil (Cialis) 5 Mg TABLET Yes Daily@0600 [facility] Tamsulosin Hcl Tamsulosin Hcl Yes .4 Daily [facility] Warfarin Sodium Warfarin Sodium Yes 10 4 X Week [facility] Warfarin Sodium Warfarin Sodium Yes 12.5 3 X Week [facility] Amlodipine Besylate Amlodipine Besylate 2015-01-08 00:00:00 No 10 Daily [facility] Vital Signs Vital Name Observation Time Observation Value Comments Source Body Temperature 2019-12-30 11:48:00 97.4 [degF] [facility] Body Temperature 2019-12-29 08:29:00 97.7 [degF] [facility] Weight 2019-12-29 04:41:00 294.13 [lb_av] [facility] BMI (Body Mass Index) 2019-12-29 04:41:00 35.8 kg/m2 [facility] Procedures Procedure Date / Time Performed Performing Clinician Sour e [UTP] Ortho - Surgery Scheduling 2019-12-06 00:00:00 [facility] . [facility] - COVID-19/SARS-Cov-2 2019-12-06 00:00:00 [facility] Plan of Care Planned Activity Planned Date Details Comments Source Future Scheduled Test 2021-03-14 00:00:00 Lipid [facility] (proce dure) [code = 59159162[facility] 2020-01-16 00:00:00 INFLUENZA VACCINE (#1) [code = INFLUENZA VACCINE (#1)] [facility] r Diagnostic Test Pending 2019-12-06 00:00:00 [UTP] Ortho - Issa rgery Scheduling [code = [UTP] Ortho - Surgery Scheduling] [facility] Diagnostic Test Pending 2019-12-06 00:00:00 [UTP] Ortho - Issa rgery Scheduling [code = [UTP] Ortho - Surgery Scheduling] [facility] Future Scheduled Test 2019 00:00:00 PNEUMOCOCCAL 65+ L OW/MEDIUM RISK (1 of 2 - PCV13) [code = PNEUMOCOCCAL 65+ LOW/MEDIUM RISK (1 of 2 - PCV13)] [facility] Future Scheduled Test 1954 00:00:00 Screening for eloise gnwill neoplasm of colon (procedure) [code = 034991424] [facility] Instructions Fractures [facility] Encounters Start Date/Time End Date/Time En[facility]counter ID Source 2019-12-24 15:23:00 2019-12-30 12:24:00 Discharged Inpatient 1 GHAZAL OBREGON [facility] [id number] [facility] 2019-12-06 09:45:00 2019-12-06 09:45:00 Appointment; ROBBIE GOODMAN M.D. CARLYLE, TRENTON, M.D. [facility] [id number] [facility] Results Test Description Test Time Test Comments Results Result Comments Source Capillary blood glucose measurement by glucometer (mas s/volume) 2019-12-29 19:40:00 Test Item Bedside Glucose (test code = 29539-2) 173 70-120 Meter ID: [id number] [facility] HospitalBlood leukocytes automated count (number/volume)2019-12-29 06:39:00* Test Item Value Reference Range Interpretation Comments White Blood Count (test code = 6690-2) 8.00 4.8-10.8 [facility] automated count (number/volume)2019-12-29 06:39:00* Test Item Value Reference Range Interpretation Comments Red Blood Count (test code = 789-8) 2.88 4.3-5.7 [facility] measurement (moles/volume)2019-12-29 06:39:00* Test Item Value Reference Range Interpretation Comments Hemoglobin (test code = 07697-7) 8.8 14.0-18.0 [facility]Autom[facility] blood hematocrit (volume fraction)2019-12-29 06:39:00* Test Item Value Reference Range Interpretation Comments Hematocrit (test code = 4544-3) 26.3 38.2-49.6 [facility] HospitalAutomated erythrocyte mean corpuscular [id number] 06:39:00* Test Item Value Reference Range Interpretation Comments Mean Corpuscular Volume (test code = 787-2) 91.3 81-99 [facility] erythrocyte mean corpuscular hemoglobin (mass per erythrocyte)2019-12-29 06:39:00* Test Item Value Reference Range Interpretation Comments Mean Corpuscular Hemoglobin (test code = 785-6) 30.6 28-32 [facility] erythrocyte mean corpuscular hemoglobin concentration measurement (mass/volume)2019-12-29 06:39:00* Test Item Value Reference Range Interpretation Comments Mean Corpuscular Hemoglobin Concent (test code = 786-4) 33.5 31-35 [facility] HospitalRDW TbsSp-Kyj2968-20-14 06:39:00* Test Item Value Reference Range Interpretation Comments Red Cell Distribution Width (test code = 48191-3) 13.6 11.7 -14.4 [facility] HospitalAutom[facility] blood platelet count (count/volume)2019-12-29 06:39:00* Test Item Value Reference Range Interpretation Comments Platelet Count (test code = 777-3) 181 140-360 [facility] HospitalAutom[facility] blood segmented neutrophil count as percentage of total jbmempsljj0303-72-32 06:39:00* Test Item Value Reference Range Interpretation Comments Neutrophils (%) (Auto) (test code = 59902-2) 73.1 38.7-80.0 [facility] HospitalAutom[facility] blood lymphocyte count as percentage ot total pzetepqtct7351-93-28 06:39:00* Test Item Value Reference Range Interpretation Comments Lymphocytes (%) (Auto) (test code = 736-9) 12.8 18.0-39.1 [facility] HospitalAutom[facility] blood monocyte count as percentage of total lairyvvljv3078-67-60 06:39:00* Test Item Value Reference Range Interpretation Comments Monocytes (%) (Auto) (test code = 5905-5) 12.4 4.4-11.3 [facility] HospitalAutom[facility] blood eosinophil count as percentage of total zpzqifugho9189-15-19 06:39:00* Test Item Value Reference Range Interpretation Comments Eosinophils (%) (Auto) (test code = 713-8) 0.9 0.0-6.0 [facility] HospitalAutom[facility] blood basophil count as percentage of total qamfcpmsjb2750-87-39 06:39:00* Test Item Value Reference Range Interpretation Comments Basophils (%) (Auto) (test code = 706-2) 0.3 0.0-1.0 [facility] HospitalFluoroscopic procedure less than one hour txwjhihx9352-90-38 06:39:00* Test Item Value Reference Range Interpretation Comments IM GRANULOCYTES % (test code = IM GRANULOCYTES %) 0.5 0.0- 1.0 [facility]Autom[facility] blood neutrophil count 2019-12-29 06:39:00* Test Item Value Reference Range Interpretation Comments Neutrophils # (Auto) (test code = 751-8) 5.9 2.1-6.9 [facility]Blood lymphocytes count (number/volume) 2019-12-29 06:39:00* Test Item Value Reference Range Interpretation Comments Lymphocytes # (Auto) (test code = 69980-4) 1.0 1.0-3.2 [facility] HospitalBlood monocytes automated count (number/volume)2019-12-29 06:39:00* Test Item Value Reference Range Interpretation Comments Monocytes # (Auto) (test code = 742-7) 1.0 0.2-0.8 [facility] HospitalAutom[facility] blood eosinophil count 2019-12-29 06:39:00* Test Item Value Reference Range Interpretation Comments Eosinophils # (Auto) (test code = 711-2) 0.1 0.0-0.4 [facility] HospitalAutomated blood basophil count (count/volume)2019-12-29 06:39:00* Test Item Value Reference Range Interpretation Comments Basophils # (Auto) (test code = 704-7) 0.0 0.0-0.1 [facility] HospitalFluoroscopic procedure less than one hour oyacsfhh7336-47-34 06:39:00* Test Item Value Reference Range Interpretation Comments Absolute Immature Granulocyte (auto (ct t code = Absolute Immature Granulocyte (auto) 0.04 0-0.1 [facility] HospitalProthrombin time (PT) in platelet poor plasma by coagulation xmmzw8352-03-37 06:39:00* Test Item Value Reference Range Interpretation Comments Prothrombin Time (test code = 5902-2) 18.0 11.9-14.5 [facility] HospitalINR in Platelet poor plasma by Coagulation qyuqx5884-63-11 06:39:00* Test Item Value Reference Range Interpretation Comments Prothromb Time International Ratio (test code = 6301-6) 1.40 Oral Anticoagulant Therapy INR Values:1. Low Intensity Therapy 1.5 - 2.02 . Moderate Intensity Therapy 2.0 - 3.03. High Intensity Therapy(1) 2.5 - 3. 54. High Intensity Therapy(2) 3.0 - 4.05. Panic Value INR > 5.0 [facility] sodium [facility] (moles/volume)2019-12-29 06:39:00* Test Item Value Reference Range Interpretation Comments Sodium Level (test code = 2951-2) 142 136-145 [facility] potassium measurement (moles/volume)2019-12-29 06:39:00* Test Item Value Reference Range Interpretation Comments Potassium Level (test code = 2823-3) 3.7 3.5-5.1 [facility] chloride measurement (moles/volume)2019-12-29 06:39:00* Test Item Value Reference Range Interpretation Comments Chloride Level (test code = 2075-0) 105 98-107 [facility] carbon dioxide, total measurement (moles/volume)2019-12-29 06:39:00* Test Item Value Reference Range Interpretation Comments Carbon Dioxide Level (test code = 2028-9) 31 22-29 [facility] anion [id number] 06:39:00* Test Item Value Reference Range Interpretation Comments Anion Gap (test code = 30354-4) 9.7 8-16 [facility] urea nitrogen measurement (mass/volume)2019-12-29 06:39:00* Test Item Value Reference Range Interpretation Comments Blood Urea Nitrogen (test code = 3094-0) 10 7-26 [facility] creatinine measurement (mass/volume)2019-12-29 06:39:00* Test Item Value Reference Range Interpretation Comments Creatinine (test code = 2160-0) 0.64 0.72-1.25 [facility] urea nitrogen/creatinine mass lhjbs5854-63-15 06:39:00* Test Item Value Reference Range Interpretation Comments BUN/Creatinine Ratio (test code = 3097-3) 16 6- [facility] HospitalEstimated glomerular filtration rate (GFR) xnurwmbzicber8896-73-13 06:39:00* Test Item Value Reference Range Interpretation Comments Estimat Glomerular Filtration Rate (test code = 968532995) > 60 >60 Ranges were taken from the National Kidney Disease Education Program and the [facility] literature.Reference ranges:60 or greater: Cnrfsr54-76 ( for 3 consecutive months): Chronic kidney disease 15 or less: Kidney failureMetropolitan Methodist HospitalGlucose yzrujisnrzr5492-56-92 06:39:00* Test Item Value Reference Range Interpretation Comments Glucose Level (test code = CAR9056) 120 74-118 [facility] calcium measurement (mass/volume)2019-12-29 06:39:00* Test Item Value Reference Range Interpretation Comments Calcium Level (test code = 29514-3) 8.7 8.4-10.2 [facility] total bilirubin measurement (mass/volume)2019-12-29 06:39:00* Test Item Value Reference Range Interpretation Comments Total Bilirubin (test code = 1975-2) 1.7 0.2-1.2 [facility] HospitalFluoroscopic procedure less than one hour zhsphljh7468-11-24 06:39:00* Test Item Value Reference Range Interpretation Comments Aspartate Amino Transf (AST/SGOT) (test code = Aspartate Amino Transf (AST/SGOT)) 130 5-34 [facility] or plasma alanine aminotransferase measurement (enzymatic activity/volume)2019-12-29 06:39:00* Test Item Value Reference Range Interpretation Comments Alanine Aminotransferase (ALT/SGPT) (test code = 1742-6) 111 0-55 [facility] plasma protein measurement (mass/volume)2019-12-29 06:39:00* Test Item Value Reference Range Interpretation Comments Total Protein (test code = 2885-2) 5.8 6.5-8.1 [facility] albumin measurement (mass/volume)2019-12-29 06:39:00* Test Item Value Reference Range Interpretation Comments Albumin (test code = 1751-7) 3.1 3.5-5.0 [facility] HospitalPlasma globulin measurement (mass/volume) 2019-12-29 06:39:00* Test Item Value Reference Range Interpretation Comments Globulin (test code = 12790-9) 2.7 2.3-3.5 [facility] albumin/globulin mass gaxtj8692-76-66 06:39:00* Test Item Value Reference Range Interpretation Comments Albumin/Globulin Ratio (test code = 1759-0) 1.1 0.8-2.0 [facility] alkaline phosphatase measurement (enzymatic activity/volume)2019-12-29 06:39:00* Test Item Value Reference Range Interpretation Comments Alkaline Phosphatase (test code = 6768-6) 106 40-150 [facility] HospitalBlood leukocytes automated count (number/volume)2019-12-29 06:39:00* Test Item Value Reference Range Interpretation Comments White Blood Count (test code = 6690-2) 8.00 4.8-10.8 [facility] HospitalBlood erythrocytes automated count (number/volume)2019-12-29 06:39:00* Test Item Value Reference Range Interpretation Comments Red Blood Count (test code = 789-8) 2.88 4.3-5.7 [facility] HospitalBlood hemoglobin measurement (moles/volume)2019-12-29 06:39:00* Test Item Value Reference Range Interpretation Comments Hemoglobin (test code = 70618-9) 8.8 14.0-18.0 [facility] HospitalAutomated blood hematocrit (volume fraction)2019-12-29 06:39:00* Test Item Value Reference Range Interpretation Comments Hematocrit (test code = 4544-3) 26.3 38.2-49.6 [facility] HospitalAutomated erythrocyte mean corpuscular eshzjw1435-73-49 06:39:00* Test Item Value Reference Range Interpretation Comments Mean Corpuscular Volume (test code = 787-2) 91.3 81-99 [facility] HospitalAutomated erythrocyte mean corpuscular hemoglobin (mass per erythrocyte)2019-12-29 06:39:00* Test Item Value Reference Range Interpretation Comments Mean Corpuscular Hemoglobin (test code = 785-6) 30.6 28-32 [facility] HospitalAutomated erythrocyte mean corpuscular hemoglobin concentration measurement (mass/volume)2019-12-29 06:39:00* Test Item Value Reference Range Interpretation Comments Mean Corpuscular Hemoglobin Concent (test code = 786-4) 33.5 31-35 [facility] HospitalRDW LbwHm-Kcy4024-31-14 06:39:00* Test Item Value Reference Range Interpretation Comments Red Cell Distribution Width (test code = 87010-8) 13.6 11.7 -14.4 [facility] HospitalAutomated blood platelet count (count/volume)2019-12-29 06:39:00* Test Item Value Reference Range Interpretation Comments Platelet Count (test code = 777-3) 181 140-360 [facility] HospitalAutomated blood segmented neutrophil count as percentage of total qecaocekof8819-29-37 06:39:00* Test Item Value Reference Range Interpretation Comments Neutrophils (%) (Auto) (test code = 06110-3) 73.1 38.7-80.0 [facility] HospitalAutomated blood lymphocyte count as percentage ot total zeromxdypn0798-24-28 06:39:00* Test Item Value Reference Range Interpretation Comments Lymphocytes (%) (Auto) (test code = 736-9) 12.8 18.0-39.1 [facility] HospitalAutomated blood monocyte count as percentage of total xnvlmvqpex2019-34-05 06:39:00* Test Item Value Reference Range Interpretation Comments Monocytes (%) (Auto) (test code = 5905-5) 12.4 4.4-11.3 [facility] HospitalAutomated blood eosinophil count as percentage of total hjegvwtwlg2357-80-00 06:39:00* Test Item Value Reference Range Interpretation Comments Eosinophils (%) (Auto) (test code = 713-8) 0.9 0.0-6.0 [facility] HospitalAutomated blood basophil count as percentage of total yhcrbbygsd7963-08-47 06:39:00* Test Item Value Reference Range Interpretation Comments Basophils (%) (Auto) (test code = 706-2) 0.3 0.0-1.0 [facility] HospitalFluoroscopic procedure less than one hour cpwtqfmw1299-55-76 06:39:00* Test Item Value Reference Range Interpretation Comments IM GRANULOCYTES % (test code = IM GRANULOCYTES %) 0.5 0.0- 1.0 [facility] HospitalAutomated blood neutrophil count 2019-12-29 06:39:00* Test Item Value Reference Range Interpretation Comments Neutrophils # (Auto) (test code = 751-8) 5.9 2.1-6.9 [facility] HospitalBlood lymphocytes count (number/volume) 2019-12-29 06:39:00* Test Item Value Reference Range Interpretation Comments Lymphocytes # (Auto) (test code = 30304-0) 1.0 1.0-3.2 [facility] HospitalBlood monocytes automated count (number/volume)2019-12-29 06:39:00* Test Item Value Reference Range Interpretation Comments Monocytes # (Auto) (test code = 742-7) 1.0 0.2-0.8 [facility] HospitalAutomated blood eosinophil count 2019-12-29 06:39:00* Test Item Value Reference Range Interpretation Comments Eosinophils # (Auto) (test code = 711-2) 0.1 0.0-0.4 [facility] HospitalAutomated blood basophil count (count/volume)2019-12-29 06:39:00* Test Item Value Reference Range Interpretation Comments Basophils # (Auto) (test code = 704-7) 0.0 0.0-0.1 [facility] HospitalFluoroscopic procedure less than one hour cexgnfdl7054-18-49 06:39:00* Test Item Value Reference Range Interpretation Comments Absolute Immature Granulocyte (auto (ct t code = Absolute Immature Granulocyte (auto) 0.04 0-0.1 [facility] HospitalProthrombin time (PT) in platelet poor plasma by coagulation klhwd2990-44-37 06:39:00* Test Item Value Reference Range Interpretation Comments Prothrombin Time (test code = 5902-2) 18.0 11.9-14.5 [facility] HospitalINR in Platelet poor plasma by Coagulation mijzf0732-20-43 06:39:00* Test Item Value Reference Range Interpretation Comments Prothromb Time International Ratio (test code = 6301-6) 1.40 Oral Anticoagulant Therapy INR Values:1. Low Intensity Therapy 1.5 - 2.02 . Moderate Intensity Therapy 2.0 - 3.03. High Intensity Therapy(1) 2.5 - 3. 54. High Intensity Therapy(2) 3.0 - 4.05. Panic Value INR > 5.0 [facility] sodium [facility] (moles/volume)2019-12-29 06:39:00* Test Item Value Reference Range Interpretation Comments Sodium Level (test code = 2951-2) 142 136-145 [facility] potassium measurement (moles/volume)2019-12-29 06:39:00* Test Item Value Reference Range Interpretation Comments Potassium Level (test code = 2823-3) 3.7 3.5-5.1 [facility] chloride measurement (moles/volume)2019-12-29 06:39:00* Test Item Value Reference Range Interpretation Comments Chloride Level (test code = 2075-0) 105 98-107 [facility] carbon dioxide, total measurement (moles/volume)2019-12-29 06:39:00* Test Item Value Reference Range Interpretation Comments Carbon Dioxide Level (test code = 2028-9) 31 22-29 [facility] anion bix9257-87-58 06:39:00* Test Item Value Reference Range Interpretation Comments Anion Gap (test code = 44938-2) 9.7 8-16 [facility] or plasma urea nitrogen measurement (mass/volume)2019-12-29 06:39:00* Test Item Value Reference Range Interpretation Comments Blood Urea Nitrogen (test code = 3094-0) 10 7-26 [facility] creatinine measurement (mass/volume)2019-12-29 06:39:00* Test Item Value Reference Range Interpretation Comments Creatinine (test code = 2160-0) 0.64 0.72-1.25 [facility] plasma urea nitrogen/creatinine mass vxuvp7354-97-48 06:39:00* Test Item Value Reference Range Interpretation Comments BUN/Creatinine Ratio (test code = 3097-3) 16 6-25 [facility] HospitalEstimated glomerular filtration rate (GFR) xjphzbdvxhmnx1941-60-04 06:39:00* Test Item Value Reference Range Interpretation Comments Estimat Glomerular Filtration Rate (test code = 492195734) > 60 >60 Ranges were taken from the National Kidney Disease Education Program and the [facility] literature.Reference ranges:60 or greater: Cfmsst74-15 ( for 3 consecutive months): Chronic kidney disease 15 or less: Kidney failureMet[facility] Methodist HospitalGlucose qehtahvxjic9478-98-15 06:39:00* Test Item Value Reference Range Interpretation Comments Glucose Level (test code = KDN6527) 120 74-118 [facility] plasma calcium measurement (mass/volume)2019-12-29 06:39:00* Test Item Value Reference Range Interpretation Comments Calcium Level (test code = 66193-6) 8.7 8.4-10.2 [facility] plasma total bilirubin measurement (mass/volume)2019-12-29 06:39:00* Test Item Value Reference Range Interpretation Comments Total Bilirubin (test code = 1975-2) 1.7 0.2-1.2 [facility] HospitalFluoroscopic procedure less than one hour vdgsoyup5639-08-23 06:39:00* Test Item Value Reference Range Interpretation Comments Aspartate Amino Transf (AST/SGOT) (test code = Aspartate Amino Transf (AST/SGOT)) 130 5-34 [facility] plasma alanine aminotransferase measurement (enzymatic activity/volume)2019-12-29 06:39:00* Test Item Value Reference Range Interpretation Comments Alanine Aminotransferase (ALT/SGPT) (test code = 1742-6) 111 0-55 [facility] plasma protein measurement (mass/volume)2019-12-29 06:39:00* Test Item Value Reference Range Interpretation Comments Total Protein (test code = 2885-2) 5.8 6.5-8.1 [facility] plasma albumin measurement (mass/volume)2019-12-29 06:39:00* Test Item Value Reference Range Interpretation Comments Albumin (test code = 1751-7) 3.1 3.5-5.0 [facility] HospitalPlasma globulin measurement (mass/volume) 2019-12-29 06:39:00* Test Item Value Reference Range Interpretation Comments Globulin (test code = 01143-3) 2.7 2.3-3.5 [facility] albumin/globulin mass elkuq7197-60-38 06:39:00* Test Item Value Reference Range Interpretation Comments Albumin/Globulin Ratio (test code = 1759-0) 1.1 0.8-2.0 [facility] plasma alkaline phosphatase measurement (enzymatic activity/volume)2019-12-29 06:39:00* Test Item Value Reference Range Interpretation Comments Alkaline Phosphatase (test code = 6768-6) 106 40-150 [facility] HospitalCapillary blood glucose measurement by glucometer (mass/volume)2019-12-28 20:10:00* Test Item Value Reference Range Interpretation Comments Bedside Glucose (test code = 30814-5) 141 70-120 Meter ID: [id number] Methodist HospitalActivated partial thromboplastin time (aPTT) in platelet poor plasma by coagulation assay 2019-12-27 06:30:00* Test Item Value Reference Range Interpretation Comments Activated Partial Thromboplast Time (test code = 54132-5) 75.2 23.8-35.5 [facility] HospitalActivated partial thromboplastin time (aPTT) in platelet poor plasma by coagulation dfcba2979-55-60 06:30:00* Test Item Value Reference Range Interpretation Comments Activated Partial Thromboplast Time (test code = 97573-7) 75.2 23.8-35.5 [facility] HospitalUrine color upyjmahhokwju0169-16-49 02:30:00* Test Item Value Reference Range Interpretation Comments Urine Color (test code = 5778-6) ORANGE YELLOW [facility] HospitalUrine jktwyoo5531-83-60 02:30:00* Test Item Value Reference Range Interpretation Comments Urine Clarity (test code = 67903-9) CLOUDY CLEAR [facility] Centerpecific gravity of Urine by Test strip 2019-12-25 02:30:00* Test Item Value Reference Range Interpretation Comments Urine Specific [place] (test code = 5811-5) 1.025 1.010-1.02 5 [facility] HospitalUrine pH measurement by automated test jwctg0140-88-92 02:30:00* Test Item Value Reference Range Interpretation Comments Urine pH (test code = 95093-1) 7 5-7 [facility] HospitalUrine leukocyte esterase detection by zysvjlaf8927-46-56 02:30:00* Test Item Value Reference Range Interpretation Comments Urine Leukocyte Esterase (test code = 5799-2) NEGATIVE NEGATIVE [facility] HospitalUrine nitrite ggvqtsfyu1673-19-42 02:30:00* Test Item Value Reference Range Interpretation Comments Urine Nitrite (test code = 38816-4) NEGATIVE NEGATIVE [facility] HospitalUrine protein measurement by test strip (mass/volume)2019-12-25 02:30:00* Test Item Value Reference Range Interpretation Comments Urine Protein (test code = 5804-0) NEGATIVE NEGATIVE [facility] HospitalUrine glucose rryccivbq7242-24-26 02:30:00* Test Item Value Reference Range Interpretation Comments Urine Glucose (UA) (test code = 2349-9) NEGATIVE NEGATIVE [facility] HospitalUrine ketones detection by automated test nhced8216-13-42 02:30:00* Test Item Value Reference Range Interpretation Comments Urine Ketones (test code = 37486-3) NEGATIVE NEGATIVE [facility] HospitalUrine urobilinogen measurement by test strip (mass/volume)2019-12-25 02:30:00* Test Item Value Reference Range Interpretation Comments Urine Urobilinogen (test code = 80759-6) 1 0.2-1 [facility] HospitalUrine total bilirubin measurement (mass/volume)2019-12-25 02:30:00* Test Item Value Reference Range Interpretation Comments Urine Bilirubin (test code = 1978-6) 1+ NEGATIVE Confirmatory test currently unavailable. False positive results may occur.[facility] HospitalUrine erythrocytes vljataege0716-57-72 02:30:00* Test Item Value Reference Range Interpretation Comments Urine Blood (test code = 24086-1) NEGATIVE NEGATIVE [facility] HospitalAutomated urine sediment leukocyte count by microscopy (number/high power field)2019-12-25 02:30:00* Test Item Value Reference Range Interpretation Comments Urine WBC (test code = 5821-4) 6-10 0-5 [facility] HospitalErythrocytes detection in urine sediment by light dcgyelkbaf1656-97-31 02:30:00* Test Item Value Reference Range Interpretation Comments Urine RBC (test code = 97945-9) 6-10 0-5 [facility] HospitalBacteria detection in urine sediment by light uxlqvvvglb9578-91-53 02:30:00* Test Item Value Reference Range Interpretation Comments Urine Bacteria (test code = 64497-8) MANY NONE [facility] HospitalEpithelial cells detection in urine sediment by light gckwgnumdv6993-04-31 02:30:00* Test Item Value Reference Range Interpretation Comments Urine Epithelial Cells (test code = 06605-0) FEW NONE [facility] HospitalAmorphous sediment detection in urine sediment by light vfludzzskg9522-11-56 02:30:00* Test Item Value Reference Range Interpretation Comments Urine Amorphous Sediment (test code = 8246-1) MANY FEW [facility] HospitalMucus detection in urine sediment by light qldekfdxfv4081-09-67 02:30:00* Test Item Value Reference Range Interpretation Comments Urine Mucus (test code = 8247-9) FEW RARE [facility] HospitalUrine color nubrusjfxgiqb4610-25-96 02:30:00* Test Item Value Reference Range Interpretation Comments Urine Color (test code = 5778-6) ORANGE YELLOW [facility] HospitalUrine qwxzpal2122-14-21 02:30:00* Test Item Value Reference Range Interpretation Comments Urine Clarity (test code = 94245-1) CLOUDY CLEAR [facility] Centerpecific gravity of Urine by Test strip 2019-12-25 02:30:00* Test Item Value Reference Range Interpretation Comments Urine Specific [place] (test code = 5811-5) 1.025 1.010-1.02 5 [facility] HospitalUrine pH measurement by automated test cxvqh9203-50-69 02:30:00* Test Item Value Reference Range Interpretation Comments Urine pH (test code = 18883-0) 7 5-7 [facility] HospitalUrine leukocyte esterase detection by hsxwawhs7463-75-53 02:30:00* Test Item Value Reference Range Interpretation Comments Urine Leukocyte Esterase (test code = 5799-2) NEGATIVE NEGATIVE [facility] HospitalUrine nitrite azjqxmmms0055-54-01 02:30:00* Test Item Value Reference Range Interpretation Comments Urine Nitrite (test code = 97163-3) NEGATIVE NEGATIVE [facility] HospitalUrine protein measurement by test strip (mass/volume)2019-12-25 02:30:00* Test Item Value Reference Range Interpretation Comments Urine Protein (test code = 5804-0) NEGATIVE NEGATIVE [facility] HospitalUrine glucose evtzxpozl4763-79-56 02:30:00* Test Item Value Reference Range Interpretation Comments Urine Glucose (UA) (test code = 2349-9) NEGATIVE NEGATIVE [facility] HospitalUrine ketones detection by automated test efrsc8850-99-29 02:30:00* Test Item Value Reference Range Interpretation Comments Urine Ketones (test code = 87379-6) NEGATIVE NEGATIVE [facility] HospitalUrine urobilinogen measurement by test strip (mass/volume)2019-12-25 02:30:00* Test Item Value Reference Range Interpretation Comments Urine Urobilinogen (test code = 86673-5) 1 0.2-1 [facility] HospitalUrine total bilirubin measurement (mass/volume)2019-12-25 02:30:00* Test Item Value Reference Range Interpretation Comments Urine Bilirubin (test code = 1978-6) 1+ NEGATIVE Confirmatory test currently unavailable. False positive results may occur.[facility] HospitalUrine erythrocytes dyeblfnoj7309-76-45 02:30:00* Test Item Value Reference Range Interpretation Comments Urine Blood (test code = 67052-4) NEGATIVE NEGATIVE [facility] HospitalAutomated urine sediment leukocyte count by microscopy (number/high power field)2019-12-25 02:30:00* Test Item Value Reference Range Interpretation Comments Urine WBC (test code = 5821-4) 6-10 0-5 [facility] HospitalErythrocytes detection in urine sediment by light dlxmqsfkbq2711-69-45 02:30:00* Test Item Value Reference Range Interpretation Comments Urine RBC (test code = 75193-0) 6-10 0-5 [facility] HospitalBacteria detection in urine sediment by light qkyywqntwb6787-63-51 02:30:00* Test Item Value Reference Range Interpretation Comments Urine Bacteria (test code = 12499-1) MANY NONE [facility] HospitalEpithelial cells detection in urine sediment by light vcjphhunqa5398-62-40 02:30:00* Test Item Value Reference Range Interpretation Comments Urine Epithelial Cells (test code = 96219-0) FEW NONE [facility] HospitalAmorphous sediment detection in urine sediment by light lxflgcqkjx3961-53-83 02:30:00* Test Item Value Reference Range Interpretation Comments Urine Amorphous Sediment (test code = 8246-1) MANY FEW [facility] HospitalMucus detection in urine sediment by light pzzjcaqjsz8535-84-35 02:30:00* Test Item Value Reference Range Interpretation Comments Urine Mucus (test code = 8247-9) FEW RARE [facility] HospitalFluoroscopic procedure less than one hour zazmzvag6919-15-08 17:20:00* Test Item Value Reference Range Interpretation Comments Coronavirus (PCR) (test code = Coronavirus (PCR)) NOT DETECTED NOTD ETECTED Hologic Aptima SARS-CoV-2 assay is a nucleic amplification test intended for the qualitative detection of RNA from SARS-CoV-2 from nasopharyngeal (STUDIO TECHNICIAN) specimens. It is used under Emergency Use Authorization (EUA) by FDA.A positive result is indicative of the presence of SARS-CoV-2 RNA. Clinical correlation with patient history and other diagnostic information is necessary to determine patient infe ction status.A negative (Not Detected) result does not preclude SARS-CoV-2 infec tion. Clinical Correlation with patient history and other diagnostic information should be used in patient management decisions.Invalid: Unable to generate a va lid result on this specimen. Please submit a new specimen for reprat testing oc clinically indicated.Tesing performed by:[facility] [address] [place] [address] [id number] hernandez MD, PhD [facility] HospitalFluoroscopic procedure less than one hour ywsrrrlh7037-43-08 17:20:00* Test Item Value Reference Range Interpretation Comments Coronavirus (PCR) (test code = Coronavirus (PCR)) NOT DETECTED NOTD ETECTED Hologic Aptima SARS-CoV-2 assay is a nucleic amplification test intended for the qualitative detection of RNA from SARS-CoV-2 from nasopharyngeal (STUDIO TECHNICIAN) specimens. It is used under Emergency Use Authorization (EUA) by FDA.A positive result is indicative of the presence of SARS-CoV-2 RNA. Clinical correlation with patient history and other diagnostic information is necessary to determine patient infe ction status.A negative (Not Detected) result does not preclude SARS-CoV-2 infec tion. Clinical Correlation with patient history and other diagnostic information should be used in patient management decisions.Invalid: Unable to generate a va lid result on this specimen. Please submit a new specimen for reprat testing oc clinically indicated.Tesing performed by:[facility] [address] [place] [address] [id number] hernandez MD, PhD [facility] HospitalCXR 1 VEW - [id number] 16:44:00 [facility] [address] [place] [address] Patient Name: CASSANDRA GREEN JR MR #: [id number] : Age/Sex: 64/M Req #: [id number] Adm Physician: GHAZAL OBREGON MD Ordered by: SHARI SONG MD Report #: [id number] Location: [facility] Room/Bed: [place] [address] Procedure: [id number] HOP D/CXR 1 VEW - HOPD Exam Date: 12/24/19 Exam Time: REPORT STATUS: Signed EXAMINA TION: CXR 1 VIEW - HOPD COMPARISON: None INDICATION: preop [id number] DISCUSSION: Frontal view of the chest obtained at 1 632 hours. HEART AND MEDIASTINUM: The heart is enlarged with a prosthetic aortic valve annulus. Thoracic aorta is tortuous. Pulmonary veins are prominen t. LINES: None. LUNGS/PLEURA: The lungs are well inflated and clear. No pneumonia or pulmonary edema. No pleural effusion or pneumothorax. MAXIMINO BLANCA AND SOFT TISSUES: Median sternotomy wires are intact. No focal osseous le sions. Mild degenerative changes of the right AC joint. The soft tissues are n ormal. IMPRESSION: Cardiomegaly and prosthetic aortic valve annulus. Pulmonary venous hypertension. No acute pulmonary process. Signed by: Dr. Buzz Sharma MD on 12/24/2019 4:45 PM Dictated By: BUZZ SAHRMA MD 44 Transcribed By: ANJALI on 12/24/191644 COPY TO: SHARI SONG MD HIP 2 VW WITH PELVIS RT - [id number] 16:42:00 [facility] [address] [place] [address] Patient Name: CASSANDRA GREEN JR MR #: [id number] : 1955 Age/Sex: 64/M Req #: [id number] [facility] Physician: GHAZAL OBREGON MD Ordered by: SHARI SONG MD Report #: [id number] Location: [facility] Room/Bed: [place] [address] Procedure: [id number] HOP D/HIP 2 VW WITH PELVIS RT - HOPD Exam Date: 12/24/19 Exam Time: 1620 REPORT STATUS: Sig citlalli Hip complete Indication: preop [id number] 1620 Techniq ue: AP and frogleg views of right hip obtained. Comparison: CT bony pelvis 12/24/2019 Findings: Severe degenerative changes of the right hip. Mild degenerative changes of the left hip. Intertrochanteric fracture of the right femur is not displaced. Femoral head is not dislocated. No diastases the pubic symphysis sacroiliac joints. Mild degenerative changes of the lower lumbar sp ine. No significant burden of calcification in the arterial structures. I MPRESSION: Nondisplaced intertrochanteric fracture of the right femur. No f emoral head dislocation. Severe degenerative changes of the right hip. Si gned by: Dr. Buzz Sharma MD on 12/24/2019 4:44 PM Dictated By: DEX SHARMA MD 43 Transcribed By: ANJALI on 12/24/191643 COPY TO: SHARI SONG MD CT PELVIS [id number]-[id number] 14:40:00 [place] [address] Patient Name: CASSANDRA GREEN JR MR #: [id number] : 1955 Age/Sex: 64/M Req #: [id number] Adm Physician: Ordered by: SHARI SONG MD Report #: [id number] [facility] Room/Bed: Procedure: HOP D/CT PELVIS WITHOUT-HOPD Exam Date: 12/24/19 Exam Ti me: 1420 REPORT STATUS: Signed C T Bony Pelvis Without Contrast, With Multiplanar Reconstruction. CPT CODE: 23551,60209. INDICATIONS: Chronic hip pain increasing after fall TECHN IQUE: Contiguous 5 mm thickness axial images were obtained in helical fashion through the bony pelvis. From these, coronal and sagittal reconstructions wer e generated. RADIATION DOSE: Total DLP: 402.6 mGy*cm Estimate d effective dose: (DLP x 0.015 x size factor) mSv CTDIvol has been review ed. It is below the limits set by the Radiation Protocol Committee (RPC). Dose reduction techniques used: Automated exposure control, adjustment of the mAs and/or kVp according to patient size, standardized low-dose protocol, and /or iterative reconstruction technique. COMPARISON: Report of CT abdomen/pe lvis performed 01/06/2015. Findings: Bowel: Visualized portions are nor mal in diameter with normal wall thickness. The appendix is normal. Bladd er: Circumferential mural thickening. The prostate gland is enlarged. Vascu lature: Aortic structures are diffusely calcified. Bones: Degenerative arroyo ges of the lower lumbar spine without compression fracture or listhesis. Degen erative changes of the sacroiliac joints, right greater than left. Severe dege nerative changes of the right hip. Nondisplaced intertrochanteric fracture of the right femur. Mild degenerative changes of the left hip. Soft tissues: No intramuscular hematoma. Small amount of simple fluid in the right inguinal canal. IMPRESSION: Nondisplaced intertrochanteric fracture of the rig ht femur. Severe degenerative changes of the right hip. No femoral head disloc ation. Other degenerative changes as described above. Fluid containing right inguinal hernia. Thank you for this referral. Signed by: Dr. Evelyne MD on 12/24/2019 2:44 PM Dictated By: BUZZ SHARMA MD 43 Transcribed B y: ANJALI on 12/24/191443 COPY TO: SHARI SONG MD PROTHROMBIN TIME/GMO0305-15-07 09:12:00* Test Item Value Reference Range Interpretation Comments PROTIME (BEAKER) (test code = 759) 31.9 seconds 11.7-14.7 H INR (BEAKER) (test code = 370) 3.1 <=5.9 RECOMMENDED COUMADIN/WARFARIN INR THERAPY RANGESSTANDARD DOSE: 2.0 - 3.0 Inclu kristal: PROPHYLAXIS for venous thrombosis, systemic embolization; TREATMENT for svetlana ous thrombosis and/or pulmonary embolus.HIGH RISK: Target INR is 2.5-3.5 for pat ients with mechanical heart valves.U/S, TESTICULAR, WITH [id number] 22:09:00Reason for exam:->left testicular swellingc/o inability to [...] Verified Date/Time: 05/12/2017 22:09:12 R sunni Location: [address] [place] Room ALYSIS W/ MICROSCOPIC 2017-05-12 [...] 1661) 50-100 /HPF SOURCE(BEAKER) (test code = 9741)
--- OUTSIDE RECORDS SUMMARY | 2020-01-09 07:09 | XMS REPORT | Clinical Summary ---
Author Author [employer] [facility] [employer] [facility] Address Unknown Phone Unavailable Care Team Providers Care Water Trainer Name Role Phone Greg Nuñez MD PCP [...] glucosam/chond-msm1/C/man Take 2 0 g/bor tablets by (UHKJFFBDHKY-YCRCO-LRN mouth daily. COMPLEX ORAL) Active tamsulosin (FLOMAX) [...] PANEL 03/14/2021 03/14/2018 Results Not on fileafter 01/08/2019 Insurance Payer Benefit Subscriber ID Type Phone Address Plan / Group [facility] [employer] HMO xxxxxxxxx HMO/PO S CARE POS SELECT CHOICE [phone] Advance Directives For more information, please contact: [facility] [address] [place] [address] Date Inactivated Comments Code Status Date Activated Full Code 03/25/2018 11:06 AM This code status was determined by: Patient
--- NOTE | 2020-01-09 07:15 | NUR ---
Total output of urine after insertion of lind was 950
[2020-01-09] MEDS ORDERED: MACROBID 100 M100 MG PO (07:41)
--- NOTE | 2020-01-09 07:42 | Emergency Department Note ---
History of Present Illnes History of Present Illness Chief Complaint: unable to urinate/suprapubic pain History of Present Illness This is a 64 year old male. h/o bph Arrival Mode: Car History limited by: condition of the patient (normal) [employer] Advisor Required: No Onset (how long ago): hour(s) (12) Radiation: Reports non-radiation Severity: moderate Onset quality: gradual Duration (how long): hour(s) (12) Timing of current episode: constant Progression: worsening Chronicity: new Context: Denies recent illness, Denies recent surgery, Denies recent im mobilization, Denies recent travel, Denies trauma/injury, Denies new medications, Denies hx of DVT/PE, Denies non-compliance w/ medications Relieving factors: none Exacerbating factors: movement Associated symptoms: Reports denies other symptoms Treatments prior to arrival: none Past Medical/Family History Physician Review I have reviewed the patient's past medical and family history. Any updates have been documented here. Past Medical History Recent Fever: No Clinical Suspicion of Infectio: No New/Unexplained Change in Ment: No Past Medical History: Hypertension, A-Fib, UTI's, Depression, Osteoarthritis Other Medical History: FLUID RETENTION, bph NEUROPATHY BPH ARTIFCIAL HEART FAILURE Past Surgical History: Cholecysctectomy, Knee Replacement Other Surgery: AORTIC VALVE REPLACEMENT 2004, GALLBLADDER SURGERY 2000, ACL REPAIR LEFT KNEE 1990, Social History Smoking Cessation: Former smoker Counseling Performed: No Alcohol Use: None Any Illegal Drug Use: No TB Exposure/Symptoms: No Physically hurt or threatened: No Family History Family history of heart diseas: No Other Last Tetanus: UTD Any Pre-Existing Lines (PICC,: No Is patient up to date on immun: No Review of Systems Review of Systems Constitutional: Reports no symptoms EENTM: Reports no symptoms Cardiovascular: Reports no symptoms Respiratory: Reports no symptoms Gastrointestinal: Reports no symptoms Genitourinary: Reports as per HPI Musculoskeletal: Reports no symptoms Integumentary: Reports no symptoms Neurological: Reports no symptoms Psychological: Reports no symptoms Endocrine: Reports no symptoms Hematological/Lymphatic: Reports no symptoms Review of other systems: All other systems negative Physical Exam Related Data Allergies: Coded Allergies: No Known Allergies (Unverified , 01/05/15) Vital signs reviewed: Yes Physical Exam CONSTITUTIONAL Constitutional: Present well-developed, Present well-nourished HENT HENT: Present normocephalic, Present atraumatic, Present oropharynx clear/moist, Present nose normal HENT L/R: Present left ext ear normal, Present right ext ear normal EYES Eyes: Reports PERRL, Reports conjunctivae normal NECK Neck: Present ROM normal, Present supple PULMONARY Pulmonary: Present effort normal, Present breath sounds normal CARDIOVASCULAR Cardiovascular: Present regular rhythm, Present heart sounds normal, Present capillary refill normal, Present normal rate GASTROINTESTINAL Abdominal: Present soft, Present bowel sounds normal, Present tender (suprapubic) GENITOURINARY Genitourinary: Present exam deferred SKIN Skin: Present warm, Present dry MUSCULOSKELETAL Musculoskeletal: Present ROM normal NEUROLOGICAL Neurological: Present alert, Present oriented x 3, Present no gross motor or sensory deficits PSYCHOLOGICAL Psychological: Present mood/affect normal, Present judgement normal Critical Care Time Comments symptoms resolved s/p lind placement and urine out of 950 ml Assessment & Plan Medical Decision Making MDM urinary retention Assessment & Plan Final Impression: (1) Urinary retention Depart Disposition: HOME, SELF-halfway Meds Active Scripts Nitrofurantoin Monohyd/M-Cryst (MACROBID 100 MG CAPSULE) 100 Mg Capsule, 100 MG PO BIDWM, #14 CAP Prov:TAPAN HIGGINBOTHAM 01/09/20 Tramadol Hcl* (ULTRAM 50MG*) 50 Mg Tab, 50 MG PO Q6H PRN for pain, #30 TAB Prov:GHAZAL OBREGON MD 12/30/19 Sennosides (SENOKOT) 8.6 Mg Tablet, 8.6 MG PO BID for 15 Days Prov:GHAZAL OBREGON MD 12/30/19 Amlodipine Besylate (AMLODIPINE BESYLATE) 10 Mg Tablet, 10 MG PO DAILY, #30 TAB Prov:ERIKA LIMON NP 01/08/15 Reported Medications Cyclobenzaprine Hcl (FLEXERIL) 5 Mg Tablet, PO Q8H 12/30/19 Cyclobenzaprine Hcl (FLEXERIL) 5 Mg Tablet, PO Q8H 12/30/19 Tadalafil (CIALIS) 5 Mg Tablet, PO DAILY@0600 12/25/19 Finasteride (FINASTERIDE) 5 Mg Tablet, 5 MG PO DAILY, #30 TAB 12/25/19 Gabapentin (GABAPENTIN) 300 Mg Capsule, 300 MG PO TID, #60 CAP 01/05/15 Tamsulosin Hcl (TAMSULOSIN HCL) 0.4 Mg Cap.er.24h, 0.4 MG PO DAILY 01/05/15 Warfarin Sodium (WARFARIN SODIUM) 10 Mg Tablet, 12.5 MG PO 3 X WEEK 01/05/15 Warfarin Sodium (WARFARIN SODIUM) 10 Mg Tablet, 10 MG PO 4 X WEEK 01/05/15 Furosemide (FUROSEMIDE) 40 Mg Tablet, 40 MG PO Daily, #30 TAB 01/05/15 Quinapril Hcl (ACCUPRIL) 40 Mg Tablet, 40 MG PO BID 01/05/15 Atenolol (ATENOLOL) 50 Mg Tablet, 50 MG PO BID 01/05/15 TAPAN HIGGINBOTHAM Jan 09, 2020 07:42
[2020-01-09 08:27] VITALS: BP 90/52
== END 2020-01-09 08:00 | disposition home or self-care (01) ==
LOC: FSED 06:48
DX: R33.9 Retention of urine, unspecified (principal); E11.40 Type 2 diabetes mellitus with diabetic neuropathy, unspecified; I10 Essential (primary) hypertension; I48.91 Unspecified atrial fibrillation; F32.9 Major depressive disorder, single episode, unspecified
CPT/HCPCS: 51700; 99283

== ENCOUNTER → 2020-02-14 | Outpatient (RCR) | payer OTHER ==
[~2020-02-14] MED LIST changes: +MACROBID 100 M100 MG PO
== END ==
LOC: PT 02-06 12:58
PROVIDERS: ATTEND Orthopaedic Surgery
DX: M25.551 Pain in right hip (principal)

== ENCOUNTER 2020-03-15 09:00 | Outpatient (RCR) | payer OTHER | END 2020-03-16 | LOC: PT 09:00 | PROVIDERS: ATTEND Orthopaedic Surgery | DX: M25.551 Pain in right hip (principal); M25.651 Stiffness of right hip, not elsewhere classified; M62.81 Muscle weakness (generalized); R26.2 Difficulty in walking, not elsewhere classified | CPT/HCPCS: 97139 ==

== ENCOUNTER 2020-04-03 17:00 | Outpatient (RCR) | payer OTHER | END 2020-04-15 | LOC: PT 17:00 | PROVIDERS: ATTEND Orthopaedic Surgery | DX: M25.551 Pain in right hip (principal); M25.651 Stiffness of right hip, not elsewhere classified; M62.81 Muscle weakness (generalized); R26.2 Difficulty in walking, not elsewhere classified | CPT/HCPCS: 97139 ==